=== PATIENT | female | born 1980 | race Caucasian/White ===

== ENCOUNTER → 2016-08-18 | Outpatient (CLI) | payer OTHER ==
[2016-08-18 10:28] LABS: CHLORIDE,CL 108 mmol/L (98-110); SODIUM,NA 140 mmol/L (136-146)
--- NOTE | 2016-08-18 14:48 | CR ---
EXAMINATION: Paranasal sinuses HISTORY: Disturbance of skull and taste COMPARISON: None TECHNIQUE: Stewart' view FINDINGS/IMPRESSION: The frontal and maxillary sinuses appear grossly patent. The nasal septum is mi dline. No bony destruction or air-fluid levels.
== END ==
LOC: MW.CHOBGYN 09:32
PROVIDERS: ATTEND Nurse Practitioner Women's Health
DX: R43.9 Unspecified disturbances of smell and taste (principal)
CPT/HCPCS: 36415; 70210; 70210-26; 80053; 84443; 85025; 85652; 86038

== ENCOUNTER → 2016-08-27 | Outpatient (CLI) | payer OTHER ==
[2016-08-27] MEDS: Gadobutrol 10 mMOL/10 ML SDV IVPUSH STA (15:05)
--- NOTE | 2016-08-29 12:45 | MR ---
EXAMINATION: MRI of the brain with and without contrast. TECHNIQUE: Multiplanar and multisequence imaging of the brain without and following the administrati on of 10 mL of Gadavist. HISTORY: Disturbance of smell and taste. FINDINGS: Cerebral hemispheres and the deep nuclei are without hemorrhage, mass, edema, gliosis, enhancement o r atrophy. No extraaxial collections or hemorrhage. The ventricular system is of normal size and c onfiguration without hydrocephalus. No abnormal diffusion restriction. The brainstem and cerebellum are without hemorrhage, mass, edema, gliosis, enhancement or atrophy. The carotid basilar artery flow voids are intact. The otomastoid airspaces are clear. No internal auditory canal or cerebellopontine angle masses or enhancement. No cranial neuritis. Paranasal sinuses are clear. Globes, optic nerves, orbital apices, optic chiasm, optic tracts, and visual cortices are unremarkable. The pituitary and sella turcica are unremarkable. No meningeal enhancement. Craniocervical junction is unremarkable. No siderosis or evidence of vascular malformation. The josh varium is intact. IMPRESSION: 1. No abnormal intracranial findings.
== END | disposition home or self-care (01) ==
LOC: MW.MRI 14:44
PROVIDERS: ATTEND Nurse Practitioner Women's Health
DX: R43.9 Unspecified disturbances of smell and taste (principal)
CPT/HCPCS: 70553; A9585

== ENCOUNTER 2017-10-26 08:39 | Day surgery (SDC) | payer OTHER ==
[~2017-10-26 08:39] MED LIST: Bupivacaine 0.5% 10 ML SDV ONE; Dexamethasone 4 MG/ML 5 ML MDV ONE; Lactated Ringers 1,000 ML IV SCH; Midazolam 1 MG/ML 2 ML SDV ONE; Ondansetron 4 MG/2 ML SDV ONE; Propofol 200 MG/20 ML SDV ONE; fentaNYL 100 MCG/2 ML SDV ONE
--- NOTE | 2017-10-26 09:19 | PCM.PREANE ---
Preanesthetic Assessment - Anesthesia/Transfusion/Family Hx Anesthesia History: Prior Anesthesia Without Reaction Other Type of Anesthesia Reaction Comment: Denies any known problems in past Family History of Anesthesia Reaction: No Transfusion History: No Prior Transfusion(s) - Review of Systems General: No Symptoms Pulmonary: No Symptoms Cardiovascular: No Symptoms Gastrointestinal: No Symptoms Neurological: No Symptoms Other: Reports: None - Physical Assessment NPO Status Date: 10/25/17 O2 Sat by Pulse Oximetry: 98 Respiratory Rate: 16 Vital Signs: Last Vital Signs Temp 36.7 C 10/26/17 08:52 Pulse 80 10/26/17 08:52 Resp 16 10/26/17 08:52 BP 154/91 H 10/26/17 08:52 Pulse Ox 98 10/26/17 08:52 Height: 1.68 m Weight: 99.337 kg ASA Class: 2 Mental Status: Alert & Oriented x3 Airway Class: Mallampati = 2 Dentition: Reports: Normal Dentition ROM/Head Extension: Full Lungs: Clear to Auscultation, Normal Respiratory Effort Cardiovascular: Regular Rate, Regular Rhythm - Allergies Allergies/Adverse Reactions: Allergies Allergy/AdvReac Type Severity Reaction Status Date / Time doxycycline Allergy Rash Verified 10/21/17 14:34 morphine Allergy Rash Verified 10/21/17 14:34 oxycodone [Oxycodone] Allergy Rash Verified 10/21/17 14:34 - Anesthesia Plan Pre-Op Medication Ordered: None - Acknowledgements Anesthesia Type Planned: General Anesthesia Pt an Appropriate Candidate for the Planned Anesthesia: Yes Alternatives and Risks of Anesthesia Discussed w Pt/Guardian: Yes Pt/Guardian Understands and Agrees with Anesthesia Plan: Yes PreAnesthesia Questionnaire HEENT History: Reports: Other (See Below) Other HEENT History: wears glasses/contacts 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: 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 History: Reports: Fracture Other 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 History: hx of bilateral legs, hand Neurological History: Reports: Concussion, Migraines Psychiatric History: Reports: Anxiety, Depression Endocrine/Metabolic History: Reports: Hypothyroidism, Obesity/BMI 30+ Other Endocrine/Metabolic History: hx of Hashimotos disease Hematologic History: Reports: Anemia, Iron Deficiency - Past Surgical History HEENT Surgical History: Reports: Oral Surgery, Tonsillectomy Other HEENT Surgeries/Procedures: wisdom teeth GI Surgical History: Reports: Bariatric Procedure, Other (See Below) Other GI Surgeries/Procedures: removal of gastric lap band Female Surgical History: Reports: Section, D&C, Other (See Below) Other Female Surgeries/Procedures: Laparoscopy 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 Surgical History: Reports: Other (See Below) Other 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 Surgeries/Procedures:: Closed Reduction Fx Femur - SUBSTANCE USE Smoking Status *Q: Current Every Day Smoker Tobacco Use Within Last Twelve Months: Cigarettes Second Hand Smoke Exposure: No Days Per Week of Alcohol Use: 0 Number of Drinks Per Day: 0 Total Drinks Per Week: 0 Recreational Drug Use History: No - HOME MEDS Home Medications: Home Meds Levothyroxine Sodium [Synthroid] 125 mcg PO ACBREAKFAST 01/04/15 [History] Citalopram [Citalopram HBr] 20 mg PO DAILY 10/21/17 [History] Ferrous Sulfate [Iron] 650 mg PO DAILY 10/21/17 [History] - CURRENT (IN HOUSE) MEDS Current Meds: Current Medications Lactated Ringer's (Ringers, Lactated) 1,000 mls @ 125 mls/hr IV ASDIRECTED [facility] Last Admin: 10/26/17 08:54 Dose: 125 mls/hr Discontinued Medications Bupivacaine HCl (Sensorcaine-Mpf 0.5%) Confirm Administered Dose 10 ml .ROUTE .STK-MED ONE Stop: 10/26/17 07:12 Dexamethasone (Dexamethasone) Confirm Administered Dose 20 mg .ROUTE .STK-MED ONE Stop: 10/26/17 07:18 Fentanyl (Sublimaze) Confirm Administered Dose 100 mcg .ROUTE .STK-MED ONE Stop: 10/26/17 07:16 Midazolam HCl (Versed 1 Mg/Ml) Confirm Administered Dose 2 mg .ROUTE .STK-MED ONE Stop: 10/26/17 07:16 Ondansetron HCl (Zofran) Confirm Administered Dose 4 mg .ROUTE .STK-MED ONE Stop: 10/26/17 07:18 Propofol (Diprivan 20 Ml) Confirm Administered Dose 200 mg .ROUTE .STK-MED ONE Stop: 10/26/17 07:16
[2017-10-26] MEDS ORDERED: fentaNYL 100 MCG/2 ML SDV IVPUSH PRN (09:23)
[2017-10-26] MEDS ORDERED: Lidocaine 1% 20 ML MDV ONE (09:26)
[2017-10-26] MEDS ORDERED: Propofol 200 MG/20 ML SDV ONE (09:46)
[2017-10-26] MEDS ORDERED: Lactated Ringers 1,000 ML IV SCH (10:30)
[2017-10-26] MEDS ORDERED: Acetaminophen 325 MG Tab PO PRN (10:30)
[2017-10-26] MEDS ORDERED: traMADol 50 MG Tab PO PRN (10:31)
--- NOTE | 2017-10-26 10:34 | PCM.OPNOTE ---
- General Post-Op/Procedure Note Date of Surgery/Procedure: 10/26/17 Operative Procedure(s): Excision left breast mass Pre Op Diagnosis: Palpable left breast mass Post-Op Diagnosis: Same Anesthesia Technique: General LMA (ASA II) Primary Surgeon: Kaleb Zimmer Fluid Replacement, Intraop: 600 EBL in mLs: 10 Condition: Good Free Text/Narrative:: Dictation [id number] CPT CODE 20213
--- NOTE | 2017-10-26 11:17 | OR ---
SURGEON: Kaleb Zimmer M.D. DATE OF PROCEDURE: 10/26/2017 OPERATION PERFORMED: Excision of left breast mass. ANESTHESIA: General LMA. ASA CLASSIFICATION: II. PREOPERATIVE DIAGNOSIS: Palpable enlarging left breast mass. POSTOPERATIVE DIAGNOSIS: Palpable enlarging left breast mass. ESTIMATED BLOOD LOSS: 10 mL. INTRAOPERATIVE FLUID REPLACEMENT: 600 mL of crystalloid. DESCRIPTION OF PROCEDURE: The patient was taken to the operating room and placed on the operating table in the supine position. Time-out was called for appropriate identification of the patient and procedure. The surgical site had been marked prior to the patient entering the operating room as well as marking the line of incision. Following satisfactory attainment of general anesthesia with placement of an LMA, the left breast was prepped with Betadine solution. Sterile drapes were applied. The skin at the nipple-areolar complex from 10 o'clock to 2 o'clock was infiltrated with 10 mL of 0.5% Marcaine solution. The skin incision was made and deepened through the subcutaneous tissue obtaining hemostasis with the use of electrocautery. The mass was grasped with an Allis clamp and using electrocautery, dissected free. Small bleeding sites were electrocoagulated. Larger vessels were ligated with 3-0 Vicryl. Once the specimen was completely removed and with a 2-0 silk suture marking the anterior margin, the margins of the tumor were marked with a breast marking system per protocol. The wound was inspected for hemostasis. No other bleeding was noted. The incision was closed in 2 layers approximating the subcutaneous tissue with 3-0 Polysorb, and the skin with subcuticular 4-0 Monocryl. The incision was then Steri-Stripped and dressed with a well-padded pressure dressing. Sponge, needle, and instrument counts were all correct. The patient tolerated the procedure well. Following emergence from anesthesia and extubation, she was taken to the recovery room in a stable condition. It should be noted that the specimen was sent fresh to Pathology for histologic analysis. ТАТЬЯНА SOFIA /[id number]
--- NOTE | 2017-10-26 11:59 | PCM.POSTAN ---
POST ANESTHESIA ASSESSMENT - MENTAL STATUS Mental Status: Alert, Oriented - RESPIRATORY Respiratory Status: Respiratory Rate WNL, Airway Patent, O2 Saturation Stable - CARDIOVASCULAR CV Status: Pulse Rate WNL, Blood Pressure Stable - GASTROINTESTINAL GI Status: No Symptoms - POST OP HYDRATION Hydration Status: Adequate & Stable
--- NOTE | 2017-10-26 11:59 | PCM48HPAN ---
Post Anesthesia Note - EVALUATION WITHIN 48HRS OF ANESTHETIC Vital Signs in Normal Range: Yes Patient Participated in Evaluation: Yes Respiratory Function Stable: Yes Airway Patent: Yes Cardiovascular Function Stable: Yes Hydration Status Stable: Yes Pain Control Satisfactory: Yes Nausea and Vomiting Control Satisfactory: Yes Mental Status Recovered: Yes Resp Rate: 14
[2017-10-26 12:01] VITALS: BP 138/85
== END 2017-10-26 11:59 | disposition home or self-care (01) ==
LOC: MW.SDS 08:39
PROVIDERS: ATTEND Surgery
DX: N60.32 Fibrosclerosis of left breast (principal); G43.909 Migraine, unspecified, not intractable, without status migrainosus; E89.0 Postprocedural hypothyroidism; D50.9 Iron deficiency anemia, unspecified; F41.8 Other specified anxiety disorders; E66.9 Obesity, unspecified; Z68.37 Body mass index [BMI] 37.0-37.9, adult; Z87.891 Personal history of nicotine dependence; Z79.899 Other long term (current) drug therapy; Z88.5 Allergy status to narcotic agent
CPT/HCPCS: 19120; 81025; A9270; J1100; J2250; J2405; J3010; J7120; 88307; J2704

== ENCOUNTER 2017-10-31 01:12 | Emergency (ER) | payer OTHER ==
[2017-10-31] MEDS ORDERED: Morphine 4 MG/ML Syringe IVPUSH ONE (01:58)
[2017-10-31] MEDS ORDERED: HYDROmorphone 2 MG/ML SDV IVPUSH PRN (02:18)
[2017-10-31] MEDS ORDERED: HYDROmorphone 2 MG/ML Syringe IVPUSH ONE (03:10)
[2017-10-31] MEDS ORDERED: HYDROmorphone 2 MG/ML SDV IVPUSH ONE (03:13)
--- NOTE | 2017-10-31 03:29 | EDM.PDOC ---
ED HPI GENERAL MEDICAL PROBLEM - General Chief Complaint: Skin Complaint Stated Complaint: INFECTION IN LEFT BREAST Time Seen by Provider: 10/31/17 03:25 Source of Information: Reports: Patient - History of Present Illness INITIAL COMMENTS - FREE TEXT/NARRATIVE: HISTORY AND PHYSICAL: History of present illness: [ Patient presents postop day [address] Zimmer she's had some redness and warmth of the left breast year she was started on Bactrim and Keflex 24 hours prior to arrival however now she has some purulent drainage wound cultures obtained no fever nausea vomiting chills sweats pain controlled with 1 dose of Dilaudid 0.5 mg IV I did speak with Dr. Zimmer, patient desires to go home at current and return at 7:30 AM which would be in approximately 3 hours to return for surgery/ drainage of the lesion ] Review of systems: As per history of present illness and below otherwise all systems reviewed and negative. Past medical history: As per history of present illness and as reviewed below otherwise noncontributory. Surgical history: As per history of present illness and as reviewed below otherwise noncontributory. Social history: No reported history of drug or alcohol abuse. Family history: As per history of present illness and as reviewed below otherwise noncontributory. Physical exam: HEENT: Atraumatic, normocephalic, pupils reactive, negative for conjunctival pallor or scleral icterus, mucous membranes moist, throat clear, neck supple, nontender, trachea midline. Lungs: Clear to auscultation, breath sounds equal bilaterally, chest nontender. Heart: S1S2, regular, negative for clicks, rubs, or JVD. Abdomen: Soft, nondistended, nontender. Negative for masses or hepatosplenomegaly. Negative for costovertebral tenderness. Pelvis: Stable nontender. Genitourinary: Deferred. Rectal: Deferred. Extremities: Atraumatic, negative for cords or calf pain. Neurovascular unremarkable. Neuro: Awake, alert, oriented. Cranial nerves II through XII unremarkable. Cerebellum unremarkable. Motor and sensory unremarkable throughout. Exam nonfocal. Skin as per history of present illness otherwise unremarkable Diagnostics: [ CBC CMP UA blood cultures ] Therapeutics: [ Dilaudid 0.5 mg IV continue medications as directed Nothing by mouth until surgery at 7:30 AM Present to the admissions desk for the ER ] Impression: [ infection/abscess] Definitive disposition and diagnosis as appropriate pending reevaluation and review of above. L breast Pain Score (Numeric/FACES): 7 - Related Data Allergies Allergy/AdvReac Type Severity Reaction Status Date / Time doxycycline Allergy Rash Verified 10/31/17 01:29 morphine Allergy Rash Verified 10/31/17 01:29 oxycodone [Oxycodone] Allergy Rash Verified 10/31/17 01:29 Home Meds: Home Meds Levothyroxine Sodium [Synthroid] 125 mcg PO ACBREAKFAST 01/04/15 [History] Citalopram [Citalopram HBr] 20 mg PO DAILY 10/21/17 [History] Ferrous Sulfate [Iron] 650 mg PO DAILY 10/21/17 [History] Cephalexin [Keflex] 500 mg PO QID 10/31/17 [History] Sulfamethoxazole/Trimethoprim [Bactrim Ds Tablet] 800 mg PO BID 10/31/17 [ History] Past Medical History HEENT History: Reports: Other (See Below) Other HEENT History: wears glasses/contacts 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: 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 History: Reports: Fracture Other 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 History: hx of bilateral legs, hand Neurological History: Reports: Concussion, Migraines Psychiatric History: Reports: Anxiety, Depression Endocrine/Metabolic History: Reports: Hypothyroidism, Obesity/BMI 30+ Other Endocrine/Metabolic History: hx of Hashimotos disease Hematologic History: Reports: Anemia, Iron Deficiency - Infectious Disease History Infectious Disease History: Reports: Chicken Pox, Scarlet Fever - Past Surgical History HEENT Surgical History: Reports: Oral Surgery, Tonsillectomy Other HEENT Surgeries/Procedures: wisdom teeth GI Surgical History: Reports: Bariatric Procedure, Other (See Below) Other GI Surgeries/Procedures: removal of gastric lap band Female Surgical History: Reports: Breast Biopsy, Section, D&C, Other (See Below) Other Female Surgeries/Procedures: Laparoscopy 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 Surgical History: Reports: Other (See Below) Other 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 Surgeries/Procedures:: Closed Reduction Fx Femur Social & Family History - Tobacco Use Smoking Status *Q: Current Every Day Smoker Years of Tobacco use: 15 Packs/Tins Daily: 0.5 - Caffeine Use Caffeine Use: Reports: Coffee - Recreational Drug Use Recreational Drug Use: No ED ROS GENERAL - Review of Systems Review Of Systems: ROS reveals no pertinent complaints other than HPI. ED EXAM, SKIN/RASH Exam: See Below Course - Vital Signs Last Recorded V/S: Last Vital Signs Temp 98.1 F 10/31/17 01:26 Pulse 95 10/31/17 01:26 Resp 12 10/31/17 01:26 BP 159/95 H 10/31/17 01:26 Pulse Ox 96 10/31/17 01:26 - Orders/Labs/Meds Orders: Active Orders 24 hr Category Date Time Status CULTURE BLOOD [BC] Stat Lab 10/31/17 01:46 Received CULTURE BLOOD [BC] Stat Lab 10/31/17 02:30 Received CULTURE WOUND [RM] Stat Lab 10/31/17 01:34 Received UA W/MICROSCOPIC [URIN] Stat Lab 10/31/17 01:57 Ordered HYDROmorphone [Dilaudid] Med 10/31/17 02:18 Active 0.5 mg IVPUSH ONETIME PRN Blood Culture x2 Reflex Set [OM.PC] Stat Oth 10/31/17 01:57 Ordered Medication Orders Hydromorphone HCl (Dilaudid) 0.5 mg IVPUSH ONETIME PRN PRN Reason: Pain Last Admin: 10/31/17 02:34 Dose: 0.5 mg Labs: Laboratory Tests 10/31/17 10/31/17 10/31/17 Range/Units 01:46 01:46 01:46 WBC 16.15 H (4.0-11.0) K/uL RBC 5.31 (4.30-5.90) M/uL Hgb 14.1 (12.0-16.0) g/dL Hct 42.2 (36.0-46.0) % MCV 79.5 L (80.0-98.0) fL MCH 26.6 L (27.0-32.0) pg MCHC 33.4 (31.0-37.0) g/dL RDW Std Deviation 49.0 (28.0-62.0) fl RDW Coeff of [place] 17 H (11.0-15.0) % Plt Count 280 (150-400) K/uL MPV 9.00 (7.40-12.00) fL Neut % (Auto) 68.9 (48.0-80.0) % Lymph % (Auto) 23.0 (16.0-40.0) % Maverick % (Auto) 5.9 (0.0-15.0) % Eos % (Auto) 1.9 (0.0-7.0) % Baso % (Auto) 0.3 (0.0-1.5) % Neut # (Auto) 11.1 H (1.4-5.7) K/uL Lymph # (Auto) 3.7 H (0.6-2.4) K/uL Maverick # (Auto) 1.0 H (0.0-0.8) K/uL Eos # (Auto) 0.3 (0.0-0.7) K/uL Baso # (Auto) 0.1 (0.0-0.1) K/uL Nucleated RBC % 0.0 /100WBC Nucleated RBCs # 0 K/uL INR 0.98 Sodium 137 (136-145) mmol/L Potassium 3.4 L (3.5-5.1) mmol/L Chloride 102 (98-107) mmol/L Carbon Dioxide 24.2 (21.0-32.0) mmol/L BUN 16 (7.0-18.0) mg/dL Creatinine 1.1 H (0.6-1.0) mg/dL Est Cr Clr Drug Dosing 66.82 mL/min Estimated GFR (MDRD) 56.5 ml/min Glucose 92 (74-106) mg/dL Calcium 8.8 (8.5-10.1) mg/dL Total Bilirubin 0.7 (0.2-1.0) mg/dL AST 14 L (15-37) IU/L ALT 29 (14-63) IU/L Alkaline Phosphatase 98 (46-116) U/L Total Protein 7.0 (6.4-8.2) g/dL Albumin 3.4 (3.4-5.0) g/dL Globulin 3.6 H (2.0-3.5) g/dL Albumin/Globulin Ratio 0.9 L (1.3-2.8) Meds: Medications Generic Name Dose Route Start Last Admin Trade Name Freq PRN Reason Stop Dose Admin Hydromorphone HCl 0.5 mg 10/31/17 02:18 10/31/17 02:34 Dilaudid IVPUSH 0.5 mg ONETIME PRN Administration Pain Discontinued Medications Generic Name Dose Route Start Last Admin Trade Name Freq PRN Reason Stop Dose Admin Hydromorphone HCl 0.5 mg 10/31/17 03:10 10/31/17 03:21 Dilaudid IVPUSH 10/31/17 03:11 Not Given ONETIME ONE Hydromorphone HCl 0.5 mg 10/31/17 03:13 10/31/17 03:21 Dilaudid IVPUSH 10/31/17 03:14 0.5 mg ONETIME ONE Administration Morphine Sulfate 2 mg 10/31/17 01:58 10/31/17 02:18 Morphine IVPUSH 10/31/17 01:59 Not Given ONETIME ONE Departure - Departure Time of Disposition: 03:28 Disposition: Home, Self-Care 01 Condition: Good Clinical Impression: Abscess, Cellulitis - Discharge Information Referrals: PCP,None [Primary Care Provider] - Additional Instructions: Nothing by mouth prior to surgery at 7:30 AM You're being discharged as per request from the ER Return if symptoms persist or worsen Present to the ER admissions desk at 7:30 AM as discussed as Dr. Zimmer will be expecting at that time for surgery - My Orders Last 24 Hours: My Active Orders 10/31/17 01:34 CULTURE WOUND [RM] Stat 10/31/17 01:46 CULTURE BLOOD [BC] Stat 10/31/17 01:57 UA W/MICROSCOPIC [URIN] Stat Blood Culture x2 Reflex Set [OM.PC] Stat 10/31/17 02:18 HYDROmorphone [Dilaudid] 0.5 mg IVPUSH ONETIME PRN 10/31/17 02:30 CULTURE BLOOD [BC] Stat - Assessment/Plan Last 24 Hours: My Active Orders 10/31/17 01:34 CULTURE WOUND [RM] Stat 10/31/17 01:46 CULTURE BLOOD [BC] Stat 10/31/17 01:57 UA W/MICROSCOPIC [URIN] Stat Blood Culture x2 Reflex Set [OM.PC] Stat 10/31/17 02:18 HYDROmorphone [Dilaudid] 0.5 mg IVPUSH ONETIME PRN 10/31/17 02:30 CULTURE BLOOD [BC] Stat
[2017-10-31 03:44] VITALS: BP 129/90
== END 2017-10-31 03:42 | disposition home or self-care (01) ==
LOC: MW.ED 01:12
DX: N61.1 Abscess of the breast and nipple (principal); F41.9 Anxiety disorder, unspecified; F32.9 Major depressive disorder, single episode, unspecified; D50.9 Iron deficiency anemia, unspecified; F17.210 Nicotine dependence, cigarettes, uncomplicated; Z88.5 Allergy status to narcotic agent; Z79.899 Other long term (current) drug therapy; E03.9 Hypothyroidism, unspecified; E66.9 Obesity, unspecified; Z68.38 Body mass index [BMI] 38.0-38.9, adult; Z98.890 Other specified postprocedural states
CPT/HCPCS: 36415; 80053; 85025; 85610; 87040; 87070; 96374; 96376; 99283; J1170

== ENCOUNTER 2017-10-31 07:12 | Day surgery (SDC) | payer OTHER ==
--- NOTE | 2017-10-31 08:06 | PCM.HP ---
H&P History of Present Illness - General Date of Service: 10/31/17 Admit Problem/Dx: Left breast abscess, postop Source of Information: Patient History Limitations: Reports: No Limitations - History of Present Illness Symptom Onset Date: 10/30/17 Location: Reports: Other (Left breast) Quality: Reports: Ache, Burning, Pressure Severity: Moderate Improves with: Reports: Rest Worsens with: Reports: Movement Associated Symptoms: Reports: Other (Fever, no chills.). Denies: Confusion, Chest Pain, Cough - Related Data Allergies/Adverse Reactions: Allergies Allergy/AdvReac Type Severity Reaction Status Date / Time doxycycline Allergy Rash Verified 10/31/17 07:38 morphine Allergy Rash Verified 10/31/17 07:38 oxycodone [Oxycodone] Allergy Rash Verified 10/31/17 07:38 Home Medications: Home Meds Levothyroxine Sodium [Synthroid] 125 mcg PO ACBREAKFAST 01/04/15 [History] Citalopram [Citalopram HBr] 20 mg PO DAILY 10/21/17 [History] Ferrous Sulfate [Iron] 650 mg PO DAILY 10/21/17 [History] Cephalexin [Keflex] 500 mg PO QID 10/31/17 [History] Sulfamethoxazole/Trimethoprim [Bactrim Ds Tablet] 800 mg PO BID 10/31/17 [ History] Past Medical History HEENT History: Reports: Other (See Below) Other HEENT History: wears glasses/contacts Hx of 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: 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 History: Reports: Fracture Other 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 History: hx of bilateral legs, hand Neurological History: Reports: Concussion, Migraines Psychiatric History: Reports: Anxiety, Depression Endocrine/Metabolic History: Reports: Hypothyroidism, Obesity/BMI 30+ Other Endocrine/Metabolic History: hx of Hashimotos disease Hematologic History: Reports: Anemia, Iron Deficiency - Infectious Disease History Infectious Disease History: Reports: Chicken Pox, Scarlet Fever - Past Surgical History HEENT Surgical History: Reports: Oral Surgery, Tonsillectomy Other HEENT Surgeries/Procedures: wisdom teeth GI Surgical History: Reports: Bariatric Procedure, Other (See Below) Other GI Surgeries/Procedures: removal of gastric lap band Female Surgical History: Reports: Breast Biopsy, Section, D&C, Other (See Below) Other Female Surgeries/Procedures: Laparoscopy 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 Surgical History: Reports: Other (See Below) Other 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 Surgeries/Procedures:: Closed Reduction Fx Femur Social & Family History - Caffeine Use Caffeine Use: Reports: Coffee H&P Review of Systems - Review of Systems: Review Of Systems: See Below General: Reports: Fever. Denies: Chills, Malaise, Weakness, Fatigue HEENT: Reports: No Symptoms Pulmonary: Denies: Shortness of Breath, Wheezing Cardiovascular: Denies: Chest Pain, Palpitations Gastrointestinal: Reports: No Symptoms Genitourinary: Reports: No Symptoms 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: Reports: No Symptoms Skin: Reports: Other (Left breast abscess) Psychiatric: Reports: No Symptoms Neurological: Reports: No Symptoms Hematologic/Lymphatic: Reports: No Symptoms Immunologic: Reports: No Symptoms Exam - Exam Exam: See Below - Exam General: Alert, Oriented, Cooperative, Mild Distress HEENT: Conjunctiva Clear. No: Scleral Icterus Neck: Supple, Trachea Midline Lungs: Clear to Auscultation, Normal Respiratory Effort Cardiovascular: Regular Rate, Regular Rhythm GI/Abdominal Exam: Normal Bowel Sounds, Soft, Non-Tender (Female) Exam: Deferred Rectal (Female) Exam: Deferred Back Exam: Normal Inspection Extremities: Normal Inspection, No Pedal Edema Skin: Warm, Dry, Intact, Incision (Incision in the left breast is markedly erythematous with purulent-appearing drainage) Neurological: Cranial Nerves Intact Neuro Extensive - Mental Status: Alert, Oriented x3 Psychiatric: Alert, Normal Affect, Normal Mood - Problem List (1) Left breast abscess SNOMED Code(s): 93934561 ICD Code: N61.1 - ABSCESS OF THE BREAST AND NIPPLE Status: Acute Priority : High Current Visit: Yes Problem List Initiated/Reviewed/Updated: Yes Orders Last 24hrs: Active Orders 24 hr Category Date Time Status Antiembolic Devices [RC] PER UNIT ROUTINE Care 10/31/17 08:01 Ordered Oxygen Therapy [RC] PRN Care 10/31/17 08:01 Ordered Pulse Oximetry [RC] INTERMITTENT Care 10/31/17 08:01 Ordered Skin Preparation [RC] .PREOP Care 10/31/17 08:01 Ordered Vital Signs [RC] PER UNIT ROUTINE Care 10/31/17 08:01 Ordered Nothing Per Oral Diet [DIET] Diet 10/31/17 Breakfast Ordered Resuscitation Status Routine Resus Stat 10/31/17 08:01 Ordered Assessment/Plan Comment:: Incision and drainage of left breast abscess. The operative procedure, along with the risks including but not limited to, bleeding, infection, recurrence of the abscess, reaction to anesthesia have been reviewed with the patient. Questions have been answered. Patient wishes to proceed.
[2017-10-31] MEDS ORDERED: ceFAZolin 1 GM Vial ONE (08:24)
[2017-10-31] MEDS ORDERED: Bupivacaine 0.5% 10 ML SDV ONE (08:24)
[2017-10-31] MEDS ORDERED: Ketorolac 30 MG/ML SDV ONE (09:58)
[2017-10-31] MEDS ORDERED: Morphine 10 MG/ML Syringe IVPUSH PRN (09:59)
[2017-10-31] MEDS ORDERED: Ketorolac 30 MG/ML SDV IVPUSH ONE (09:59)
[2017-10-31] MEDS ORDERED: Acetaminophen/Codeine 300-30 MG Tab PO PRN (10:00)
[2017-10-31] MEDS ORDERED: Lactated Ringers 1,000 ML IV SCH (10:00)
--- NOTE | 2017-10-31 10:07 | PCM.OPNOTE ---
- General Post-Op/Procedure Note Date of Surgery/Procedure: 10/31/17 Operative Procedure(s): Incision and drainage of postoperative left breast abscess Pre Op Diagnosis: Left breast abscess Post-Op Diagnosis: Same Anesthesia Technique: General Mask Primary Surgeon: Kaleb Zimmer Fluid Replacement, Intraop: 200 EBL in mLs: 10 Condition: Good Free Text/Narrative:: Dictation [id number] CPT CODE 81625
--- NOTE | 2017-10-31 10:57 | PCM48HPAN ---
Post Anesthesia Note - EVALUATION WITHIN 48HRS OF ANESTHETIC Vital Signs in Normal Range: Yes Patient Participated in Evaluation: Yes Respiratory Function Stable: Yes Airway Patent: Yes Cardiovascular Function Stable: Yes Hydration Status Stable: Yes Pain Control Satisfactory: Yes Nausea and Vomiting Control Satisfactory: Yes Mental Status Recovered: Yes Resp Rate: 18 - COMMENTS/OBSERVATIONS Free Text/Narrative:: to home soon
[2017-10-31 15:53] VITALS: BP 110/74
--- NOTE | 2017-11-02 11:01 | OR ---
SURGEON: Kaleb Zimmer M.D. DATE OF PROCEDURE: 10/31/2017 OPERATION PERFORMED: Incision and drainage left breast abscess. ANESTHESIA: General/mask. ASA CLASSIFICATION: 2E. PREOPERATIVE DIAGNOSIS: Postoperative left breast abscess. POSTOPERATIVE DIAGNOSIS: Postoperative left breast abscess. ESTIMATED BLOOD LOSS: 10 mL. INTRAOPERATIVE FLUID REPLACEMENT: 200 mL of crystalloid. DESCRIPTION OF PROCEDURE: The patient was taken to the operating room and placed on the operating table in the supine position. Time-out was called for appropriate identification of the patient and procedure. Surgical site had been identified preoperatively. The left chest was then prepped with Betadine solution. Sterile drapes were applied. The previous breast incision was opened up and there was approximately 10 mL of purulent material. Aerobic and anaerobic cultures were obtained and sent for culture, sensitivity, and Gram stain. Necrotic tissue was debrided away. All suture material was visualized and was removed. There was a second abscess cavity deep and this was also opened up. The wound was then irrigated with several 100 mL of sterile saline solution. All fluid was aspirated. The wound inspected for hemostasis. Bleeding sites were electrocoagulated. A 1.25 inch [place] drain was brought to the operating table. The [place] drain was cut to appropriate length and 2 [place] drains were placed, one into the deep abscess cavity and secured with a 2-0 nylon suture. The second [place] drain was placed medially and superficially and also secured with a 2-0 nylon suture. The wound was then dressed with fluffs and an ABD, secured with Mefix tape. Sponge, needle, and instrument counts were all correct. The patient tolerated the procedure well. Following emergence from anesthesia, she was taken to recovery room in stable condition. ТАТЬЯНА / BISMARK /[id number]
== END 2017-10-31 12:12 | disposition home or self-care (01) ==
LOC: MW.SDS 07:12 → MW.MS 11:30 → MW.SDS 12:12
PROVIDERS: ATTEND Surgery
DX: T81.4XXA Infection following a procedure, initial encounter (principal); N61.1 Abscess of the breast and nipple; G43.909 Migraine, unspecified, not intractable, without status migrainosus; F41.9 Anxiety disorder, unspecified; F32.9 Major depressive disorder, single episode, unspecified; E03.9 Hypothyroidism, unspecified; E66.9 Obesity, unspecified; Z68.30 Body mass index [BMI] 30.0-30.9, adult; Z79.899 Other long term (current) drug therapy; Z88.8 Allergy status to other drugs, medicaments and biological substances; Z88.5 Allergy status to narcotic agent
CPT/HCPCS: 19020; A9270; J0690

== ENCOUNTER 2017-10-31 07:32 | Emergency (ER) | payer OTHER ==
[2017-10-31] MEDS ORDERED: Lactated Ringers 1,000 ML IV SCH ×2 (08:00→10:30)
[2017-10-31] MEDS ORDERED: fentaNYL 250 MCG/5 ML SDV ONE (08:54)
[2017-10-31] MEDS ORDERED: Propofol 200 MG/20 ML SDV ONE (08:55)
[2017-10-31] MEDS ORDERED: Midazolam 1 MG/ML 2 ML SDV ONE (08:56)
--- NOTE | 2017-10-31 09:47 | PCM.PREANE ---
Preanesthetic Assessment - Procedure Proposed Procedure: Drainage breast abscess (Left) - Anesthesia/Transfusion/Family Hx Anesthesia History: Prior Anesthesia Without Reaction Other Type of Anesthesia Reaction Comment: Denies any known problems in past Family History of Anesthesia Reaction: No Transfusion History: No Prior Transfusion(s) - Review of Systems General: Other (pain left breast; obesity) Pulmonary: No Symptoms Cardiovascular: No Symptoms Gastrointestinal: No Symptoms Neurological: No Symptoms Other: Reports: None - Physical Assessment NPO Status Date: 10/30/17 NPO Status Time: 22:00 O2 Sat by Pulse Oximetry: 96 Respiratory Rate: 16 Vital Signs: Last Vital Signs Temp 97.0 F 10/31/17 07:35 Pulse 65 10/31/17 08:24 Resp 16 10/31/17 08:24 BP 116/75 10/31/17 08:24 Pulse Ox 96 10/31/17 08:24 Weight: 232 lb 5.875 oz ASA Class: 2E Mental Status: Alert & Oriented x3 Airway Class: Mallampati = 1 Dentition: Reports: Normal Dentition Thyro-Mental Finger Breadths: 3 Mouth Opening Finger Breadths: 3 ROM/Head Extension: Full Lungs: Clear to Auscultation, Normal Respiratory Effort Cardiovascular: Regular Rate, Regular Rhythm, No Murmurs - Allergies Allergies/Adverse Reactions: Allergies Allergy/AdvReac Type Severity Reaction Status Date / Time doxycycline Allergy Rash Verified 10/31/17 07:38 morphine Allergy Rash Verified 10/31/17 07:38 oxycodone [Oxycodone] Allergy Rash Verified 10/31/17 07:38 - Blood Blood Available: No Product(s) Available: None - Anesthesia Plan Pre-Op Medication Ordered: None - Acknowledgements Anesthesia Type Planned: General Anesthesia (mask) Pt an Appropriate Candidate for the Planned Anesthesia: Yes Alternatives and Risks of Anesthesia Discussed w Pt/Guardian: Yes Pt/Guardian Understands and Agrees with Anesthesia Plan: Yes PreAnesthesia Questionnaire HEENT History: Reports: Other (See Below) Other HEENT History: wears glasses/contacts Hx of fx nose Genitourinary History: Reports: None 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: 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 History: Reports: Fracture Other 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 History: hx of bilateral legs, hand Neurological History: Reports: Concussion, Migraines Psychiatric History: Reports: Anxiety, Depression Endocrine/Metabolic History: Reports: Hypothyroidism, Obesity/BMI 30+ Other Endocrine/Metabolic History: hx of Hashimotos disease Hematologic History: Reports: Anemia, Iron Deficiency - Infectious Disease History Infectious Disease History: Reports: Chicken Pox, Scarlet Fever - Past Surgical History HEENT Surgical History: Reports: Oral Surgery, Tonsillectomy Other HEENT Surgeries/Procedures: wisdom teeth GI Surgical History: Reports: Bariatric Procedure, Other (See Below) Other GI Surgeries/Procedures: removal of gastric lap band Female Surgical History: Reports: Breast Biopsy, Section, D&C, Other (See Below) Other Female Surgeries/Procedures: Laparoscopy 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 Surgical History: Reports: Other (See Below) Other 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 Surgeries/Procedures:: Closed Reduction Fx Femur - SUBSTANCE USE Smoking Status *Q: Current Every Day Smoker Tobacco Use Within Last Twelve Months: Cigarettes Recreational Drug Use History: No - HOME MEDS Home Medications: Home Meds Levothyroxine Sodium [Synthroid] 125 mcg PO ACBREAKFAST 01/04/15 [History] Citalopram [Citalopram HBr] 20 mg PO DAILY 10/21/17 [History] Ferrous Sulfate [Iron] 650 mg PO DAILY 10/21/17 [History] Cephalexin [Keflex] 500 mg PO QID 10/31/17 [History] Sulfamethoxazole/Trimethoprim [Bactrim Ds Tablet] 800 mg PO BID 10/31/17 [ History] - CURRENT (IN HOUSE) MEDS Current Meds: Current Medications Discontinued Medications Fentanyl (Sublimaze) Confirm Administered Dose 250 mcg .ROUTE .STK-MED ONE Stop: 10/31/17 08:55 Lactated Ringer's (Ringers, Lactated) 1,000 mls @ 125 mls/hr IV ASDIRECTED [facility] Last Admin: 10/31/17 08:19 Dose: 125 mls/hr Midazolam HCl (Versed 1 Mg/Ml) Confirm Administered Dose 2 mg .ROUTE .STK-MED ONE Stop: 10/31/17 08:57 Propofol (Diprivan 20 Ml) Confirm Administered Dose 200 mg .ROUTE .STK-MED ONE Stop: 10/31/17 08:56
--- NOTE | 2017-10-31 09:50 | PCM.POSTAN ---
POST ANESTHESIA ASSESSMENT - MENTAL STATUS Mental Status: Alert, Oriented - VITAL SIGNS Pulse Rate: 62 SaO2: 94 (RA) Resp Rate: 12 Blood Pressure: 120/69 Temperature: 99 F - RESPIRATORY Respiratory Status: Respiratory Rate WNL, Airway Patent, O2 Saturation Stable - CARDIOVASCULAR CV Status: Pulse Rate WNL, Blood Pressure Stable - GASTROINTESTINAL GI Status: No Symptoms - POST OP HYDRATION Hydration Status: Adequate & Stable - OBSERVATIONS Free Text/Narrative:: to observation bed for discharge to home
[2017-10-31] MEDS ORDERED: Acetaminophen/Codeine 300-30 MG Tab PO PRN (10:16)
[2017-10-31] MEDS ORDERED: Ketorolac 30 MG/ML SDV IVPUSH ONE (10:16)
[2017-10-31 10:23] VITALS: BP 99/69
== END 2017-10-31 09:02 | disposition still patient (30) ==
LOC: MW.ED 07:32
DX: Z53.21 Procedure and treatment not carried out due to patient leaving prior to being seen by health care provider (principal)
CPT/HCPCS: 87070; 87075; 87077; 87186; 87205; 96360; 99282; J1885; J2250; J3010; J7120; 00400; J2704

== ENCOUNTER 2019-04-25 14:25 | Emergency (ER) | payer BC ==
[2019-04-25] MEDS ORDERED: Albuterol/Ipratropium 3.0-0.5 MG/3 ML Neb Soln NEB ONE (15:25)
[2019-04-25] MEDS ORDERED: predniSONE 20 MG Tab PO ONE (15:25)
--- NOTE | 2019-04-25 16:01 | EDM.PDOC ---
ED HPI GENERAL MEDICAL PROBLEM - General Chief Complaint: Respiratory Problem Stated Complaint: BRONCHITIS Time Seen by Provider: 04/25/19 15:11 Source of Information: Reports: Patient History Limitations: Reports: No Limitations - History of Present Illness INITIAL COMMENTS - FREE TEXT/NARRATIVE: History of present illness: [] Review of systems: As per history of present illness and below otherwise all systems reviewed and negative. Past medical history: As per history of present illness and as reviewed below otherwise noncontributory. Surgical history: As per history of present illness and as reviewed below otherwise noncontributory. Social history: No reported history of drug or alcohol abuse. Family history: As per history of present illness and as reviewed below otherwise noncontributory. Physical exam: General: Well developed, well nourished in NAD HEENT: Atraumatic, normocephalic, pupils reactive, negative for conjunctival pallor or scleral icterus, mucous membranes moist, throat clear, neck supple, nontender, trachea midline. Lungs: Clear to auscultation, breath sounds equal bilaterally, chest nontender. Heart: S1S2, regular, negative for clicks, rubs, or JVD. Abdomen: NABS, Soft, nondistended, nontender. Negative for masses or hepatosplenomegaly. Negative for costovertebral tenderness. Pelvis: Stable nontender. Genitourinary: Deferred. Rectal: Deferred. Extremities: Atraumatic, negative for cords or calf pain. Neurovascular unremarkable. Neuro: Awake, alert, oriented. Cranial nerves II through XII unremarkable. Cerebellum unremarkable. Motor and sensory unremarkable throughout. Exam nonfocal. Skin:warm and dry Diagnostics: Therapeutics: ED Course: Impression: Prescriptions: Plan: Definitive disposition and diagnosis as appropriate pending reevaluation and review of above. - Related Data Allergies Allergy/AdvReac Type Severity Reaction Status Date / Time adhesive tape Allergy Hives Verified 04/25/19 14:52 doxycycline Allergy Rash Verified 04/25/19 14:52 morphine Allergy Rash Verified 04/25/19 14:52 oxycodone [Oxycodone] Allergy Rash Verified 04/25/19 14:52 Home Meds: Home Meds Citalopram [Citalopram HBr] 20 mg PO DAILY 10/21/17 [History] Ferrous Sulfate [Iron] 650 mg PO DAILY 10/21/17 [History] Albuterol [Ventolin HFA] 2 puff INH Q4HR PRN #1 inhaler 04/25/19 [Rx] Azithromycin [Zithromax] 250 mg PO DAILY #6 tab 04/25/19 [Rx] Levothyroxine 150 mcg PO DAILY 04/25/19 [History] Phentermine HCl 37.5 mg PO DAILY 04/25/19 [History] predniSONE [Prednisone] 20 mg PO DAILY #5 tablet 04/25/19 [Rx] Past Medical History HEENT History: Reports: Other (See Below) Other HEENT History: wears glasses/contacts Hx of fx nose Genitourinary History: Reports: None 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 History: Reports: Fracture Other 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 History: hx of bilateral legs, hand Neurological History: Reports: Concussion, Migraines Psychiatric History: Reports: Anxiety, Depression Endocrine/Metabolic History: Reports: Hypothyroidism, Obesity/BMI 30+ Other Endocrine/Metabolic History: hx of Hashimotos disease Hematologic History: Reports: Anemia, Iron Deficiency - Infectious Disease History Infectious Disease History: Reports: Chicken Pox, Scarlet Fever - Past Surgical History HEENT Surgical History: Reports: Oral Surgery, Tonsillectomy Other HEENT Surgeries/Procedures: wisdom teeth GI Surgical History: Reports: Bariatric Procedure, Other (See Below) Other GI Surgeries/Procedures: removal of gastric lap band Female Surgical History: Reports: Breast Biopsy, Section, D&C, Other (See Below) Other Female Surgeries/Procedures: Laparoscopy 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 Surgical History: Reports: Other (See Below) Other 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 Surgeries/Procedures:: Closed Reduction Fx Femur Social & Family History - Family History Family Medical History: Noncontributory - Tobacco Use Smoking Status *Q: Current Every Day Smoker Years of Tobacco use: 15 Packs/Tins Daily: 0.5 - Caffeine Use Caffeine Use: Reports: None - Recreational Drug Use Recreational Drug Use: No ED ROS GENERAL - Review of Systems Review Of Systems: See Below ED EXAM, GENERAL - Physical Exam Exam: See Below Course - Vital Signs Last Recorded V/S: Last Vital Signs Temp 96.7 F 04/25/19 14:50 Pulse 100 04/25/19 14:50 Resp 20 04/25/19 14:50 BP 127/70 04/25/19 14:59 Pulse Ox 98 04/25/19 14:50 - Orders/Labs/Meds Orders: Active Orders 24 hr Category Date Time Status RT Aerosol Therapy [RC] ASDIRECTED Care 04/25/19 15:25 Active Chest 2V [CR] Stat Exams 04/25/19 15:25 Taken Meds: Medications Discontinued Medications Generic Name Dose Route Start Last Admin Trade Name Freq PRN Reason Stop Dose Admin Albuterol/Ipratropium 3 ml 04/25/19 15:25 04/25/19 15:32 Duoneb 3.0-0.5 Mg/3 Ml NEB 04/25/19 15:26 3 ml ONETIME ONE Administration Prednisone 60 mg 04/25/19 15:25 Prednisone PO 04/25/19 15:26 ONETIME ONE Departure - Departure Time of Disposition: 16:01 Disposition: Home, Self-Care 01 Condition: Good Clinical Impression: Acute bronchitis Qualifiers: Bronchitis organism: unspecified organism Qualified Code(s): J20.9 - Acute bronchitis, unspecified - Discharge Information *PRESCRIPTION DRUG MONITORING PROGRAM REVIEWED*: Not Applicable *COPY OF PRESCRIPTION DRUG MONITORING REPORT IN PATIENT MARYCHUY: Not Applicable Prescriptions: Albuterol [Ventolin HFA] 2 puff INH Q4HR PRN #1 inhaler PRN Reason: Shortness Of Breath Azithromycin [Zithromax] 250 mg PO DAILY #6 tab predniSONE [Prednisone] 20 mg PO DAILY #5 tablet Referrals: Tao Godinez MD [Primary Care Provider] - Additional Instructions: The following information is given to patients seen in the emergency department who are being discharged to home. This information is to outline your options for follow-up care. We provide all patients seen in our emergency department with a follow-up referral. The need for follow-up, as well as the timing and circumstances, are variable depending upon the specifics of your emergency department visit. If you don't have a primary care physician on staff, we will provide you with a referral. We always advise you to contact your personal physician following an emergency department visit to inform them of the circumstance of the visit and for follow-up with them and/or the need for any referrals to a consulting specialist. The emergency department will also refer you to a specialist when appropriate. This referral assures that you have the opportunity for follow-up care with a specialist. All of these measure are taken in an effort to provide you with optimal care, which includes your follow-up. Under all circumstances we always encourage you to contact your private physician who remains a resource for coordinating your care. When calling for follow-up care, please make the office aware that this follow-up is from your recent emergency room visit. If for any reason you are refused follow-up, please contact the [facility] Emergency Department at and asked to speak to the emergency department charge nurse. Take meds as directed, follow up with your primary care physician, return to ER if symptoms worsen or change. [facility] [address] [place] [id number] - My Orders Last 24 Hours: My Active Orders 04/25/19 15:25 RT Aerosol Therapy [RC] ASDIRECTED Chest 2V [CR] Stat - Assessment/Plan Last 24 Hours: My Active Orders 04/25/19 15:25 RT Aerosol Therapy [RC] ASDIRECTED Chest 2V [CR] Stat
--- NOTE | 2019-04-25 16:09 | CR ---
EXAM DATE: 04/25/19 PATIENT'S AGE: 38 Chest: Two views of the chest were obtained. Comparison: Prior chest x-ray of 02/16/18. Heart size and mediastinum are normal. Lungs are clear. Bony structures appear within normal limits for the patient's age. Impression: 1. Nothing acute is seen on two view chest x-ray. Diagnostic code #1 Report Signed by Proxy. LAURITA
[2019-04-25 16:14] VITALS: BP 131/84; PULSE 88
== END 2019-04-25 16:14 | disposition home or self-care (01) ==
LOC: MW.ED 14:25
DX: J20.9 Acute bronchitis, unspecified (principal); F41.9 Anxiety disorder, unspecified; F32.9 Major depressive disorder, single episode, unspecified; E03.9 Hypothyroidism, unspecified; F17.210 Nicotine dependence, cigarettes, uncomplicated; Z91.048 Other nonmedicinal substance allergy status; Z88.1 Allergy status to other antibiotic agents; Z88.6 Allergy status to analgesic agent; Z88.5 Allergy status to narcotic agent; Z79.899 Other long term (current) drug therapy
CPT/HCPCS: 71046; 87804; 94640; 99283; A9270; J7620-GY

== ENCOUNTER 2019-07-22 15:34 | Emergency (ER) | payer BC ==
[2019-07-22] MEDS ORDERED: Ketorolac 60 MG/2 ML SDV IM ONE (16:15)
--- NOTE | 2019-07-22 16:25 | EDM.PDOC ---
ED HPI GENERAL MEDICAL PROBLEM - General Chief Complaint: Back Pain or Injury Stated Complaint: BACK PAIN Time Seen by Provider: 07/22/19 15:48 Source of Information: Reports: Patient History Limitations: Reports: No Limitations - History of Present Illness INITIAL COMMENTS - FREE TEXT/NARRATIVE: HISTORY AND PHYSICAL: History of present illness: Patient is a 39 year old female who presents to the ED with c/o lumbar back pain. Patient reports pain started yesterday morning. She doesn't recall any one activity that caused the discomfort. States she felt a "popping sensation". Pain worsened this morning, stating anytime she moved or had to engage her core/ back muscles it was painful. She denies any injury, trauma or falls. Denies any numbness, tingling, or saddle paraesthesias. Patient denies any fever, chills, headache, change in vision, syncope or near syncope. Denies any chest pain, back pain, shortness of breath or cough. Denies any GI or symptoms. Patient has been eating and drinking appropriately. Review of systems: As per history of present illness and below otherwise all systems reviewed and negative. Past medical history: As per history of present illness and as reviewed below otherwise noncontributory. Surgical history: As per history of present illness and as reviewed below otherwise noncontributory. Social history: See social history for further information Family history: As per history of present illness and as reviewed below otherwise noncontributory. Physical exam: General: well-developed and well-nourished 39-year female. Alert and oriented. Nontoxic appearing and in no acute distress. HEENT: Atraumatic, normocephalic, pupils equal and reactive bilaterally, negative for conjunctival pallor or scleral icterus, mucous membranes moist, TMs normal bilaterally, throat clear, neck supple, nontender, trachea midline. No drooling or trismus noted. No meningeal signs. No hot potato voice noted. Lungs: Clear to auscultation, breath sounds equal bilaterally, chest nontender. Heart: S1S2, regular rate and rhythm without overt murmur Abdomen: Soft, nondistended, obese, nontender. Negative for masses or costovertebral tenderness. Pelvis: Stable nontender. C-spine/Back: No pinpoint vertebral tenderness upon palpation. No crepitus, step -offs or obvious deformities. Bilateral paraspinous/lumbar muscular back pain. Patient is ambulatory into the emergency room without difficulty or deficit. Able to rock back on heels and walk on toes. Denies any urinary or fecal incontinence. Denies any numbness, tingling or saddle paresthesia. Skin: Intact, warm, dry. No lesions or rashes noted. Extremities: Atraumatic, moves all extremities per self without difficulty or deficits. Equal strength bilaterally to upper and lower ext. Neurovascular unremarkable. Neuro: Awake, alert, oriented. Cranial nerves II through XII unremarkable. Cerebellum unremarkable. Motor and sensory unremarkable throughout. Exam nonfocal. Notes: Diagnostics are unremarkable, incidental findings of a nonobstructing kidney stone. Patient states she is aware of this, "that's not whats going on". She states she hasn't had any pain relief with the IM medication. Will do one tab of Tramadol, she has multiple allergies. While reassessing the patient, she is sitting cross legged (Filipino style) on the chair and is moving freely/turning her trunk to face me. Medication and supportive care measures were reviewed and discussed. Voices understanding and is agreeable to plan of care. Denies any further questions or concerns at this time. Diagnostics: UA, HCGU, Lumbar Spine Therapeutics: Norflex, Toradol IM, Tramadol Prescription: Flexeril, Diclofenac Impression: Lumbar Back Strain Plan: 1. The medication you received today does cause drowsiness, so do not drive for the remaining day 2. When resting please lay on a flat firm surface. Limit your immobility to prevent muscle stiffness. Get up to ambulate/move around/gentle stretching multiple times throughout the day. May alternate heat and ice to the painful areas 3. Tylenol as needed for back pain. Otherwise take the prescribed Flexeril and diclofenac as directed. Diclofenac is an anti-inflammatory so do not take any additional NSAIDs with this medication, such as ibuprofen or Aleve. Flexeril as a muscle relaxant, this medication may cause drowsiness a do not take it will driving her needing to be functioning outside of the house. 4. Please follow-up with your primary care provider as we discussed. Return to the ED as needed and as discussed. Definitive disposition and diagnosis as appropriate pending reevaluation and review of above. lower back Pain Score (Numeric/FACES): 4 - Related Data Allergies Allergy/AdvReac Type Severity Reaction Status Date / Time adhesive tape Allergy Hives Verified 07/22/19 16:08 doxycycline Allergy Rash Verified 07/22/19 16:08 morphine Allergy Rash Verified 07/22/19 16:08 oxycodone [Oxycodone] Allergy Rash Verified 07/22/19 16:08 Home Meds: Home Meds Ferrous Sulfate [Iron] 650 mg PO DAILY 10/21/17 [History] Phentermine HCl 37.5 mg PO DAILY 04/25/19 [History] Cyclobenzaprine [Flexeril] 10 mg PO TID PRN #21 tab 07/22/19 [Rx] Diclofenac Sodium [Voltaren] 75 mg PO BIDMEALS PRN #30 tab.cr 07/22/19 [Rx] Sertraline [Zoloft] 100 mg PO DAILY 07/22/19 [History] Thyroid [Elton Thyroid] 120 mg PO DAILY 07/22/19 [History] Past Medical History HEENT History: Reports: Impaired Vision, Other (See Below) Other HEENT History: wears glasses/contacts Hx of fx nose Cardiovascular History: Reports: None Respiratory History: Reports: None Gastrointestinal History: Reports: None Genitourinary History: Reports: None [employer] History: Reports: 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 History: Reports: Fracture Other 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 History: hx of bilateral legs, hand Neurological History: Reports: Concussion, Migraines Psychiatric History: Reports: Anxiety, Depression Endocrine/Metabolic History: Reports: Hypothyroidism, Obesity/BMI 30+ Other Endocrine/Metabolic History: hx of Hashimotos disease Hematologic History: Reports: Anemia, Iron Deficiency Immunologic History: Reports: None Oncologic (Cancer) History: Reports: None Dermatologic History: Reports: None - Infectious Disease History Infectious Disease History: Reports: Chicken Pox - Past Surgical History Head Surgeries/Procedures: Reports: None HEENT Surgical History: Reports: Oral Surgery, Tonsillectomy Other HEENT Surgeries/Procedures: wisdom teeth Cardiovascular Surgical History: Reports: None Respiratory Surgical History: Reports: None GI Surgical History: Reports: Bariatric Procedure, Other (See Below) Other GI Surgeries/Procedures: removal of gastric lap band Female Surgical History: Reports: Breast Biopsy, Section, D&C, Other (See Below) Other Female Surgeries/Procedures: Laparoscopy Endocrine Surgical History: Reports: None Neurological Surgical History: Reports: None 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 Surgical History: Reports: Other (See Below) Other 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 Surgeries/Procedures:: Closed Reduction Fx Femur Oncologic Surgical History: Reports: None Dermatological Surgical History: Reports: None Social & Family History - Family History Family Medical History: Noncontributory - Tobacco Use Smoking Status *Q: Never Smoker Second Hand Smoke Exposure: No - Caffeine Use Caffeine Use: Reports: None - Recreational Drug Use Recreational Drug Use: No ED ROS GENERAL - Review of Systems Review Of Systems: Comprehensive ROS is negative, except as noted in HPI. ED EXAM,LOWER BACK PAIN/INJURY - Physical Exam Exam: See Below (See dictation) Course - Vital Signs Last Recorded V/S: Last Vital Signs Temp 97.6 F 07/22/19 16:09 Pulse 106 H 07/22/19 16:09 Resp 18 07/22/19 16:09 BP 190/93 H 07/22/19 16:09 Pulse Ox 96 07/22/19 16:09 - Orders/Labs/Meds Labs: Laboratory Tests 07/22/19 07/22/19 Range/Units 16:44 16:44 Urine Color YELLOW Urine Appearance SLT CLOUDY Urine pH 6.5 (5.0-8.0) Ur Specific [place] 1.020 (1.001-1.035) Urine Protein NEGATIVE (NEGATIVE) mg/dL Urine Glucose (UA) NEGATIVE (NEGATIVE) mg/dL Urine Ketones NEGATIVE (NEGATIVE) mg/dL Urine Occult Blood LARGE H (NEGATIVE) Urine Nitrite NEGATIVE (NEGATIVE) Urine Bilirubin NEGATIVE (NEGATIVE) Urine Urobilinogen 0.2 (<2.0) EU/dL Ur Leukocyte Esterase NEGATIVE (NEGATIVE) Urine RBC 8-12 (0-2/HPF) Urine WBC 1-2 (0-5/HPF) Ur Epithelial Cells FEW (NONE-FEW) Amorphous Sediment FEW (NEGATIVE) Urine Bacteria FEW (NEGATIVE) Urine Mucus FEW (NONE-MOD) Urine HCG, Qual NEGATIVE (NEGATIVE) Meds: Medications Discontinued Medications Generic Name Dose Route Start Last Admin Trade Name Freq PRN Reason Stop Dose Admin Ketorolac Tromethamine 60 mg 07/22/19 16:15 07/22/19 17:08 Toradol IM 07/22/19 16:16 60 mg ONETIME ONE Administration Orphenadrine Citrate 60 mg 07/22/19 16:15 07/22/19 17:08 Norflex IM 07/22/19 16:16 60 mg ONETIME ONE Administration Tramadol HCl 50 mg 07/22/19 17:43 Ultram PO 07/22/19 17:44 ONETIME ONE Departure - Departure Time of Disposition: 17:46 Disposition: Home, Self-Care 01 Clinical Impression: Lumbar back pain - Discharge Information Prescriptions: Cyclobenzaprine [Flexeril] 10 mg PO TID PRN #21 tab PRN Reason: Muscle Spasm Diclofenac Sodium [Voltaren] 75 mg PO BIDMEALS PRN #30 tab.cr PRN Reason: Pain Instructions: Acute Back Pain, Adult Referrals: Tao Godinez MD [Primary Care Provider] - Forms: ED Department Discharge Additional Instructions: The following information is given to patients seen in the emergency department who are being discharged to home. This information is to outline your options for follow-up care. We provide all patients seen in our emergency department with a follow-up referral. The need for follow-up, as well as the timing and circumstances, are variable depending upon the specifics of your emergency department visit. If you don't have a primary care physician on staff, we will provide you with a referral. We always advise you to contact your personal physician following an emergency department visit to inform them of the circumstance of the visit and for follow-up with them and/or the need for any referrals to a consulting specialist. The emergency department will also refer you to a specialist when appropriate. This referral assures that you have the opportunity for follow-up care with a specialist. All of these measure are taken in an effort to provide you with optimal care, which includes your follow-up. Under all circumstances we always encourage you to contact your private physician who remains a resource for coordinating your care. When calling for follow-up care, please make the office aware that this follow-up is from your recent emergency room visit. If for any reason you are refused follow-up, please contact the [facility] Emergency Department at and asked to speak to the emergency department charge nurse. [facility] [address] [place] [id number] [id number] 1. The medication you received today does cause drowsiness, so do not drive for the remaining day 2. When resting please lay on a flat firm surface. Limit your immobility to prevent muscle stiffness. Get up to ambulate/move around/gentle stretching multiple times throughout the day. May alternate heat and ice to the painful areas 3. Tylenol as needed for back pain. Otherwise take the prescribed Flexeril and diclofenac as directed. Diclofenac is an anti-inflammatory so do not take any additional NSAIDs with this medication, such as ibuprofen or Aleve. Flexeril as a muscle relaxant, this medication may cause drowsiness a do not take it will driving her needing to be functioning outside of the house. 4. Please follow-up with your primary care provider as we discussed. Return to the ED as needed and as discussed. Sepsis Event Note - Evaluation Sepsis Screening Result: No Definite Risk - Focused Exam Vital Signs: Vital Signs Temp Pulse Resp BP Pulse Ox 07/22/19 16:09 97.6 F 106 H 18 190/93 H 96 Date Exam was Performed: 07/22/19 Time Exam was Performed: 17:45
--- NOTE | 2019-07-22 17:40 | CR ---
Abdomen: Supine view of the abdomen was obtained. Comparison: No prior abdominal x-ray, previous CT abdomen and pelvis exam of 05/13/19. Calcifications are seen within the pelvis which are compatible with phleboliths. Slight increased stool within the colon is seen. Bowel gas pattern is otherwise unremarkable. Nonobstructing stone is noted within the lower left kidney. No other abnormal calcifications are seen. Bony structures appear within normal limits. Impression: 1. Findings as noted above. 2. Nothing acute is seen. Diagnostic code #2 This report was dictated in Mountain Standard Time
[2019-07-22] MEDS ORDERED: traMADol 50 MG Tab PO ONE (17:43)
[2019-07-22 18:05] VITALS: BP 169/108; PULSE 98
== END 2019-07-22 18:06 | disposition home or self-care (01) ==
LOC: MW.ED 15:34
DX: S39.012A Strain of muscle, fascia and tendon of lower back, initial encounter (principal); E03.9 Hypothyroidism, unspecified; D50.9 Iron deficiency anemia, unspecified; F41.9 Anxiety disorder, unspecified; F32.9 Major depressive disorder, single episode, unspecified; E66.9 Obesity, unspecified; Z88.1 Allergy status to other antibiotic agents; Z88.5 Allergy status to narcotic agent; Z91.09 Other allergy status, other than to drugs and biological substances; Z79.899 Other long term (current) drug therapy; Z68.41 Body mass index [BMI] 40.0-44.9, adult; X58.XXXA Exposure to other specified factors, initial encounter
CPT/HCPCS: 72100; 81001; 81025; 96372; 99284; A9270; J1885; J2360; 99283

== ENCOUNTER 2019-12-12 11:41 | Emergency (ER) | payer BC, OTHER ==
[2019-12-12] MEDS ORDERED: Metoclopramide 10 MG/2 ML SDV IVPUSH ONE (12:20)
[2019-12-12] MEDS ORDERED: diphenhydrAMINE 50 MG/ML SDV IVPUSH ONE (12:20)
[2019-12-12] MEDS ORDERED: Sodium Chloride 0.9% 1,000 ML IV ONE (12:21)
[2019-12-12] MEDS ORDERED: Metoprolol Succinate 50 MG Tab.ER PO ONE (12:22)
[2019-12-12] MEDS ORDERED: Sodium Chloride 0.9% 2.5 ML Syringe FLUSH PRN (12:22)
[2019-12-12] MEDS ORDERED: Sodium Chloride 0.9% 10 ML Syringe FLUSH PRN (12:22)
--- NOTE | 2019-12-12 12:27 | EDM.PDOC ---
ED HPI GENERAL MEDICAL PROBLEM - General Chief Complaint: Cardiovascular Problem Stated Complaint: HIGH BP Time Seen by Provider: 12/12/19 11:56 - History of Present Illness INITIAL COMMENTS - FREE TEXT/NARRATIVE: History of present illness: Presents to the emergency department with a headache for 3 days. Her primary care doctor sent her here because she has had elevated blood pressures in the 180s over 1 teens she received 2 doses of clonidine but did not get any better. Headache is positional worse with walking and moving she has no vision changes no weakness no nausea no vomiting no fever this was not associated with any trauma. She is a prior history of migraines as a child she did have episodes of tumor cerebri in the past she has not had prior hypertension. [place] any chest pain she does have some pain in her upper back when she walks only it is only present when she walks it is not present when she is at rest or moving around otherwise. There is been no trouble breathing no abdominal pain nothing seems to make the headache better she tried Motrin Tylenol at home Review of systems: As per history of present illness and below otherwise all systems reviewed and negative. Past medical history: As per history of present illness and as reviewed below otherwise noncontributory. Surgical history: As per history of present illness and as reviewed below otherwise noncontributory. Social history: No reported history of drug or alcohol abuse. Family history: As per history of present illness and as reviewed below otherwise noncontributory. Physical exam: HEENT: Atraumatic, normocephalic, pupils reactive, negative for conjunctival pallor or scleral icterus, mucous membranes moist, throat clear, neck supple, nontender, trachea midline. Lungs: Clear to auscultation, breath sounds equal bilaterally, chest nontender. Heart: S1S2, regular, negative for clicks, rubs, or JVD. Pulses are equal in the upper extremities Abdomen: Soft, nondistended, nontender. Negative for masses or hepatosplenome rafael. Negative for costovertebral tenderness. Pelvis: Stable nontender. Genitourinary: Deferred. Rectal: Deferred. Extremities: Atraumatic, negative for cords or calf pain. Neurovascular unremarkable. Neuro: Awake, alert, oriented. Cranial nerves II through XII unremarkable. Cerebellum unremarkable. Motor and sensory unremarkable throughout. Exam nonfocal. No meningismus there is no pronator drift Diagnostics: [] Therapeutics: [] Impression: [] Plan: Patient will go to MRI after Benadryl Reglan and a dose of metoprolol [] Definitive disposition and diagnosis as appropriate pending reevaluation and review of above. headache Pain Score (Numeric/FACES): 4 - Related Data Allergies Allergy/AdvReac Type Severity Reaction Status Date / Time adhesive tape Allergy Hives Verified 12/12/19 11:53 doxycycline Allergy Rash Verified 12/12/19 11:53 morphine Allergy Rash Verified 12/12/19 11:53 oxycodone [Oxycodone] Allergy Rash Verified 12/12/19 11:53 Home Meds: Home Meds Ferrous Sulfate [Iron] 650 mg PO DAILY 10/21/17 [History] Levothyroxine Sodium [Synthroid] 1 tab PO DAILY 12/12/19 [History] Metoprolol Succinate 50 mg PO DAILY #30 tab.er.24h 12/12/19 [Rx] Venlafaxine [Effexor XR] 1 tab PO DAILY 12/12/19 [History] Past Medical History HEENT History: Reports: Impaired Vision, Other (See Below) Other HEENT History: wears glasses/contacts Hx of fx nose Cardiovascular History: Reports: Hypertension Respiratory History: Reports: None Gastrointestinal History: Reports: None Genitourinary History: Reports: Renal Calculus 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: 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 History: Reports: Fracture Other 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 History: hx of bilateral legs, hand Neurological History: Reports: Concussion, Migraines Psychiatric History: Reports: Anxiety, Depression Endocrine/Metabolic History: Reports: Hypothyroidism, Obesity/BMI 30+ Other Endocrine/Metabolic History: hx of Hashimotos disease Hematologic History: Reports: Anemia, Iron Deficiency Immunologic History: Reports: None Oncologic (Cancer) History: Reports: None Dermatologic History: Reports: None - Infectious Disease History Infectious Disease History: Reports: Chicken Pox - Past Surgical History Head Surgeries/Procedures: Reports: None HEENT Surgical History: Reports: Oral Surgery, Tonsillectomy Other HEENT Surgeries/Procedures: wisdom teeth Cardiovascular Surgical History: Reports: None Respiratory Surgical History: Reports: None GI Surgical History: Reports: Bariatric Procedure, Other (See Below) Other GI Surgeries/Procedures: removal of gastric lap band Female Surgical History: Reports: Breast Biopsy, Section, D&C, Other (See Below) Other Female Surgeries/Procedures: Laparoscopy Endocrine Surgical History: Reports: None Neurological Surgical History: Reports: None 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 Surgical History: Reports: Other (See Below) Other 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 Surgeries/Procedures:: Closed Reduction Fx Femur Oncologic Surgical History: Reports: None Dermatological Surgical History: Reports: None Social & Family History - Family History Family Medical History: Noncontributory - Tobacco Use Smoking Status *Q: Current Every Day Smoker Years of Tobacco use: 15 Packs/Tins Daily: 0.5 - Caffeine Use Caffeine Use: Reports: Coffee - Recreational Drug Use Recreational Drug Use: No ED ROS GENERAL - Review of Systems Review Of Systems: See Below ED EXAM, GENERAL - Physical Exam Exam: See Below Course - Vital Signs Text/Narrative:: The patient's primary care sugar ordered the patient an MRI at 1:00 today. Patient would like to get to this test on time. I discussed with her darcie burnham the emergency department work-up for hypertensive headache includes a CT scan of the brain without contrast and a lumbar puncture. She is refusing this at this time would like to proceed with the MRI she is fully aware of the limitations of imaging. I will start her on some Reglan and Benadryl for comfort I am going to start her on metoprolol for her hypertension and will give her a dose in the emergency department to start. We will keep her as a patient while she gets her MRI and reviewed the results with the patient At 3:05 PM I reexamined the patient she is neurologically normal. The Benadryl and Reglan completely resolved her headache. The MRI was read by radiology as normal with no abnormalities noted. She has improved blood pressure management in the emergency department I will prescribe her a months worth of metoprolol as a start. Again I mentioned to the patient that I cannot fully exclude a subarachnoid hemorrhage nor can I diagnose pseudotumor cerebri without doing a lumbar puncture in the emergency department she does not wish to do this I am recommending she follow-up with ophthalmology for further evaluation of her headaches as well as her primary care doctor for management of her blood pressure. Last Recorded V/S: Last Vital Signs Temp 35.9 C L 12/12/19 11:50 Pulse 87 12/12/19 14:12 Resp 19 12/12/19 14:12 BP 164/84 H 12/12/19 14:12 Pulse Ox 97 12/12/19 14:12 - Orders/Labs/Meds Orders: Active Orders 24 hr Category Date Time Status Sodium Chloride 0.9% [Saline Flush] Med 12/12/19 12:22 Active 10 ml FLUSH ASDIRECTED PRN Sodium Chloride 0.9% [Saline Flush] Med 12/12/19 12:22 Active 2.5 ml FLUSH ASDIRECTED PRN Saline Lock Insert [OM.PC] Stat Oth 12/12/19 12:22 Ordered Medication Orders Sodium Chloride (Saline Flush) 10 ml FLUSH ASDIRECTED PRN PRN Reason: Keep Vein Open Last Admin: 12/12/19 12:32 Dose: 10 ml Documented by: GABRIELLA Sodium Chloride (Saline Flush) 2.5 ml FLUSH ASDIRECTED PRN PRN Reason: Keep Vein Open Last Admin: 12/12/19 12:32 Dose: 2.5 ml Documented by: GABRIELLA Meds: Medications Generic Name Dose Route Start Last Admin Trade Name Freq PRN Reason Stop Dose Admin Sodium Chloride 10 ml 12/12/19 12:22 12/12/19 12:32 Saline Flush FLUSH 10 ml ASDIRECTED PRN Administration Keep Vein Open Sodium Chloride 2.5 ml 12/12/19 12:22 12/12/19 12:32 Saline Flush FLUSH 2.5 ml ASDIRECTED PRN Administration Keep Vein Open Discontinued Medications Generic Name Dose Route Start Last Admin Trade Name Freq PRN Reason Stop Dose Admin Diphenhydramine HCl 25 mg 12/12/19 12:20 12/12/19 12:29 Benadryl IVPUSH 12/12/19 12:21 25 mg ONETIME ONE Administration Gadobenate Dimeglumine 20 ml 12/12/19 13:36 Multihance IVPUSH 12/12/19 13:37 ONETIME STA Sodium Chloride 1,000 mls @ 999 mls/hr 12/12/19 12:21 12/12/19 12:29 Normal Saline IV 12/12/19 13:21 999 mls/hr .Bolus ONE Administration Metoclopramide HCl 10 mg 12/12/19 12:20 12/12/19 12:29 Reglan IVPUSH 12/12/19 12:21 10 mg ONETIME ONE Administration Metoprolol Succinate 50 mg 12/12/19 12:22 12/12/19 12:29 Toprol Xl PO 12/12/19 12:23 50 mg ONETIME ONE Administration Departure - Departure Time of Disposition: 15:06 Disposition: Home, Self-Care 01 Condition: Good Clinical Impression: Hypertension Qualifiers: Hypertension type: essential hypertension Qualified Code(s): I10 - Essential (primary) hypertension Headache Qualifiers: Headache type: unspecified Instructions: Preventing Hypertension, General Headache Without Cause, [id number] Referrals: Annette Thakkar NP [Primary Care Provider] - Forms: ED Department Discharge Additional Instructions: The following information is given to patients seen in the emergency department who are being discharged to home. This information is to outline your options for follow-up care. We provide all patients seen in our emergency department with a follow-up referral. The need for follow-up, as well as the timing and circumstances, are variable depending upon the specifics of your emergency department visit. If you don't have a primary care physician on staff, we will provide you with a referral. We always advise you to contact your personal physician following an emergency department visit to inform them of the circumstance of the visit and for follow-up with them and/or the need for any referrals to a consulting specialist. The emergency department will also refer you to a specialist when appropriate. This referral assures that you have the opportunity for follow-up care with a specialist. All of these measure are taken in an effort to provide you with optimal care, which includes your follow-up. Under all circumstances we always encourage you to contact your private physician who remains a resource for coordinating your care. When calling for follow-up care, please make the office aware that this follow-up is from your recent emergency room visit. If for any reason you are refused follow-up, please contact the [facility] Emergency Department at and asked to speak to the emergency department charge nurse. Sepsis Event Note (ED) - Evaluation Sepsis Screening Result: No Definite Risk - Focused Exam Vital Signs: Vital Signs Temp Pulse Pulse Resp BP BP Pulse Ox 12/12/19 14:12 87 19 164/84 H 97 12/12/19 12:29 97 152/91 H 12/12/19 12:05 172/103 H 12/12/19 11:50 35.9 C L 108 H 18 186/111 H 95 - My Orders Last 24 Hours: My Active Orders 12/12/19 12:22 Sodium Chloride 0.9% [Saline Flush] 10 ml FLUSH ASDIRECTED PRN Sodium Chloride 0.9% [Saline Flush] 2.5 ml FLUSH ASDIRECTED PRN Saline Lock Insert [OM.PC] Stat - Assessment/Plan Last 24 Hours: My Active Orders 12/12/19 12:22 Sodium Chloride 0.9% [Saline Flush] 10 ml FLUSH ASDIRECTED PRN Sodium Chloride 0.9% [Saline Flush] 2.5 ml FLUSH ASDIRECTED PRN Saline Lock Insert [OM.PC] Stat
[2019-12-12] MEDS ORDERED: Gadobenate Dimeglumine 529 MG/ML 20 ML SDV IVPUSH STA (13:36)
--- NOTE | 2019-12-12 14:37 | MR ---
MRI brain Technique: T1 sagittal and coronal; T1, T2, FLAIR and diffusion axial; postcontrast T1 fat-suppressed sagittal, coronal and axial images were obtained. Findings: Ventricles along with basal cisterns and sulci over the convexities are within normal limits for the patient's age. No abnormal signal is seen within the brain parenchyma. No midline shift or mass-effect is seen. No abnormal enhancement is seen within the brain parenchyma. No acute diffusion abnormalities are seen. Impression: 1. No abnormality is appreciated on MRI study of the brain. Diagnostic code #1 This report was dictated in MDT
[2019-12-12 16:31] VITALS: BP 134/81; PULSE 76
== END 2019-12-12 15:35 | disposition home or self-care (01) ==
LOC: MW.ED 11:41
DX: I10 Essential (primary) hypertension (principal); F41.9 Anxiety disorder, unspecified; F32.9 Major depressive disorder, single episode, unspecified; E03.9 Hypothyroidism, unspecified; E66.9 Obesity, unspecified; Z68.42 Body mass index [BMI] 45.0-49.9, adult; F17.210 Nicotine dependence, cigarettes, uncomplicated; Z91.048 Other nonmedicinal substance allergy status; Z88.1 Allergy status to other antibiotic agents; Z88.5 Allergy status to narcotic agent; Z79.899 Other long term (current) drug therapy
CPT/HCPCS: 70553; 70553-26; 96374; 96375; 99283; 99284-25; A9270-GY; J1200; J2765; J7030

== ENCOUNTER 2020-06-14 05:55 | Emergency (ER) | payer BC ==
[2020-06-14] MEDS: Albuterol/Ipratropium 3.0-0.5 MG/3 ML Neb Soln NEB ONE (06:21)
[2020-06-14] MEDS: Acetaminophen 500 MG Tab PO ONE (06:25)
--- NOTE | 2020-06-14 06:25 | EDM.PDOC ---
<Dick Goldberg - Last Filed: 06/14/20 06:31> ED HPI GENERAL MEDICAL PROBLEM - General Chief Complaint: Chest Pain Stated Complaint: SOB Time Seen by Provider: 06/14/20 06:05 - History of Present Illness INITIAL COMMENTS - FREE TEXT/NARRATIVE: HISTORY AND PHYSICAL: History of present illness: This is a 39-year-old female with a history significant for hypertension, kidney stones, status post laparoscopic band (with eventual reversal of the laparoscopic band secondary to failure), who presents ER today secondary to shortness of breath that started yesterday. Patient reports that she was diagnosed with coronavirus on May 07. She reports that on May 18 she was evaluated secondary to her shortness of breath and had an elevated D-dimer. Patient reports that it a CT angiogram of her chest at that time and was diagnosed with pneumonia and was started and completed a full course of antibiotics. Patient reports that she has been doing fairly well up until yesterday when she started having low-grade fever 200.4 as well as increasing shortness of breath. Patient reports that she has chest burning and discomfort with deep inspiration as well as coughing. Patient reports that she had a yellow-green productive cough for the last 1 to 2 days. She reports that she had a temperature of 100.4 yesterday but resolved spontaneously on its own without any antipyretics. Patient reports that she has been given an albuterol MDI secondary to her coronavirus diagnosis and she has been using it intermittently since she is been diagnosed. She reports that yesterday she used it in the morning and had minimal relief. She reports that she continued to feel short of breath and yesterday night she used it multiple times without any relief in her dyspnea. Patient reports she is coming to the ED now secondary to worsening shortness of breath and worsening wheezing that she is able to hear. Patient denies any nausea, vomiting, diarrhea. Patient denies any dysuria, frequency, urgency. Patient denies any abdominal discomfort. Patient denies any change in her bowel or bladder habits. Patient denies any calf tenderness or swelling. Patient denies any hemoptysis. Patient denies any pain rating down her arms, jaw, back. Patient denies any diaphoresis or nausea associated with the chest discomfort. Patient present the chest discomfort increases with deep inspiration as well as coughing. Patient denies any history of diabetes, liver, prior lung disease, asthma, COPD, heart disease, CHF, CAD. Patient denies any history of PE or DVT. 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 Patient has had a LAP-BAND surgery with reversal secondary to failure of it working. Patient denies any other abdominal or chest surgeries. Patient denies any usage of tobacco alcohol or drugs. Patient reports that she gets hives with usage of any morphine or oxycodone. Review of systems: As per history of present illness and below otherwise all systems reviewed and negative. Past medical history: As per history of present illness and as reviewed below otherwise noncontributory. Surgical history: As per history of present illness and as reviewed below otherwise noncontributory. Social history: No reported history of drug or alcohol abuse. Family history: As per history of present illness and as reviewed below otherwise noncontributory. Physical exam: Constitutional: Patient is oriented to person, place, and time. Appears well- developed and well-nourished. No distress. HEENT: Moist mucous membranes Head: Normocephalic and atraumatic Eyes: Right eye exhibits no discharge. Left eye exhibits no discharge. No scleral icterus Neck: Normal range of motion. No tracheal deviation present. Cardiovascular: Tachycardic with a heart rate of 115. Normal S1-S2. Pulmonary: Mild increased respiratory effort. Patient has diffuse expiratory next Tory wheezing. Patient is able speak in full sentences. Patient's pulse ox 98% on room air. Abdominal: Soft, nontender, nondistended, normal active bowel sounds. 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: Normal range of motion Neurologic: Alert and oriented to person, place and time. Skin: [place], warm and dry. Psychiatric: Normal mood and affect. Behavior is normal. Judgment and thought content normal. Nursing note and vital signs have been reviewed This patient was seen and evaluated during the 2019 SARS-CoV-2 novel coronavirus pandemic period. Community viral transmission is ongoing at time of this encounter and the emergency department is operating under pandemic response procedures. Diagnostics: CBC, CMP, troponin, BNP. Chest x-ray PA and lateral. EKG Influenza a and B EKG: As interpreted by ER physician: Yusuf: Nonspecific ST-T wave abnormalities Normal P wave and QRS axis No evidence of ST elevation MO Sinus tachycardia with a heart rate of 120 Therapeutics: DuoNeb x3 Solu-Medrol 125 mg IV Assessment and plan: This is a 39-year-old female who presents ER today secondary to shortness of breath. Patient reports she has been diagnosed with coronavirus on May 07. And subsequently was diagnosed with pneumonia that she was treated for with antibiotics. Patient reports that she has been slowly improving from her coronavirus infection however over the last 1 to 2 days she has had increasing wheezing and increasing shortness of breath that has been unrelieved with her albuterol MDIs. Patient's physical exam reveals a well-developed well-nourished female who does not appear to be in any significant respiratory distress however she does have an increased aspiratory effort. Patient has diffuse expiratory expiratory wheezing. While in the ED, the patient will have a chest x-ray to rule out pneumonia. Patient will have an EKG as well as basic labs including a BNP and troponin. We will also check an influenza a and B. Patient will be given DuoNeb treatments as well as Solu-Medrol and will be reevaluated. Patient's blood pressure is markedly elevated 180/127 at this time however it is unclear whether or not this is secondary to her shortness of breath/anxiety. This will need to be reevaluated once patient is stabilized from a respiratory standpoint. Signed out to my colleague Dr. Bland at shift change, refer to their note for the final disposition. Definitive disposition and diagnosis as appropriate pending reevaluation and review of above. chest Pain Score (Numeric/FACES): 2 - Related Data Allergies Allergy/AdvReac Type Severity Reaction Status Date / Time adhesive tape Allergy Hives Verified 06/14/20 06:07 doxycycline Allergy Rash Verified 06/14/20 06:07 morphine Allergy Rash Verified 06/14/20 06:07 oxycodone [Oxycodone] Allergy Rash Verified 06/14/20 06:07 Home Meds: Home Meds Levothyroxine Sodium [Synthroid] 1 tab PO DAILY 12/12/19 [History] Albuterol Sulfate [Albuterol Sulfate Hfa] 2 puff INH ASDIRECTED PRN 06/14/20 [History] Sertraline [Zoloft] 25 mg PO DAILY 06/14/20 [History] predniSONE 40 mg PO WITHBREAKFAST 5 Days #10 tab 06/14/20 [Rx] Past Medical History HEENT History: Reports: Impaired Vision, Other (See Below) Other HEENT History: wears glasses/contacts Hx of fx nose Cardiovascular History: Reports: Hypertension Respiratory History: Reports: None Gastrointestinal History: Reports: None Genitourinary History: Reports: Renal Calculus 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: 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 History: Reports: Fracture Other 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 History: hx of bilateral legs, hand Neurological History: Reports: Concussion, Migraines Psychiatric History: Reports: Anxiety, Depression Endocrine/Metabolic History: Reports: Hypothyroidism, Obesity/BMI 30+ Other Endocrine/Metabolic History: hx of Hashimotos disease Hematologic History: Reports: Anemia, Iron Deficiency Immunologic History: Reports: None Oncologic (Cancer) History: Reports: None Dermatologic History: Reports: None - Infectious Disease History Infectious Disease History: Reports: Chicken Pox, Other (See Below) Other Infectious Disease History: COVID-19 - Past Surgical History Head Surgeries/Procedures: Reports: None HEENT Surgical History: Reports: Oral Surgery, Tonsillectomy Other HEENT Surgeries/Procedures: wisdom teeth Cardiovascular Surgical History: Reports: None Respiratory Surgical History: Reports: None GI Surgical History: Reports: Bariatric Procedure, Other (See Below) Other GI Surgeries/Procedures: removal of gastric lap band Female Surgical History: Reports: Breast Biopsy, Section, D&C, Other (See Below) Other Female Surgeries/Procedures: Laparoscopy Endocrine Surgical History: Reports: None Neurological Surgical History: Reports: None 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 Surgical History: Reports: Other (See Below) Other 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 Surgeries/Procedures:: Closed Reduction Fx Femur Oncologic Surgical History: Reports: None Dermatological Surgical History: Reports: None Social & Family History - Family History Family Medical History: No Pertinent Family History - Tobacco Use Tobacco Use Status *Q: Former Tobacco User Used Tobacco, but Quit: Yes Month/Year Tobacco Last Used: 2019 - Caffeine Use Caffeine Use: Reports: Coffee - Recreational Drug Use Recreational Drug Use: No ED ROS GENERAL - Review of Systems Review Of Systems: See Below ED EXAM, GENERAL - Physical Exam Exam: See Below #1 Interpretation EKG Interpretation Comments: EKG: As interpreted by ER physician: Yusuf: Nonspecific ST-T wave abnormalities Normal P wave and QRS axis No evidence of ST elevation MO Sinus tachycardia with a heart rate of 120 Departure - Departure Disposition: Home, Self-Care 01 Clinical Impression: Reactive airway disease - Discharge Information Prescriptions: predniSONE 40 mg PO WITHBREAKFAST 5 Days #10 tab Instructions: Asthma, Adult Referrals: [facility] [Ordering Only Provider] - Forms: ED Department Discharge Additional Instructions: For the next 4 days I encourage you to take 2 to 3 puffs of your albuterol inhaler every 4-6 hours. The first dose of prednisone should be tomorrow morning. If your symptoms worsen and are not responding to treatment I encourage you to return to the ER or follow-up with your primary care doctor. If you are not feeling your normal self by next week I encourage you to follow- up with your primary care doctor if you do not have a primary care doctor he can be seen in the [facility]. The following information is given to patients seen in the emergency department who are being discharged to home. This information is to outline your options for follow-up care. We provide all patients seen in our emergency department with a follow-up referral. The need for follow-up, as well as the timing and circumstances, are variable depending upon the specifics of your emergency department visit. If you don't have a primary care physician on staff, we will provide you with a referral. We always advise you to contact your personal physician following an emergency department visit to inform them of the circumstance of the visit and for follow-up with them and/or the need for any referrals to a consulting specialist. The emergency department will also refer you to a specialist when appropriate. This referral assures that you have the opportunity for follow-up care with a specialist. All of these measure are taken in an effort to provide you with optimal care, which includes your follow-up. Under all circumstances we always encourage you to contact your private physician who remains a resource for coordinating your care. When calling for follow-up care, please make the office aware that this follow-up is from your recent emergency room visit. If for any reason you are refused follow-up, please contact the [facility] Emergency Department at and asked to speak to the emergency department charge nurse. Sepsis Event Note (ED) - Evaluation Sepsis Screening Result: Possible Sepsis Risk <Jean Carlos Bland - Last Filed: 06/14/20 09:20> Course - Vital Signs Last Recorded V/S: Last Vital Signs Temp 96.9 F 06/14/20 06:09 Pulse 104 H 06/14/20 08:30 Resp 17 06/14/20 08:30 BP 137/85 06/14/20 08:30 Pulse Ox 95 06/14/20 08:30 - Orders/Labs/Meds Orders: Active Orders 24 hr Category Date Time Status EKG Documentation Completion [RC] AM Care 06/14/20 06:12 Active Sodium Chloride 0.9% [Saline Flush] Med 06/14/20 06:12 Active 10 ml FLUSH ASDIRECTED PRN Sodium Chloride 0.9% [Saline Flush] Med 06/14/20 06:12 Active 2.5 ml FLUSH ASDIRECTED PRN Isolation [COMM] Routine Oth 06/14/20 06:12 Active Saline Lock Insert [OM.PC] Stat Oth 06/14/20 06:12 Ordered Medication Orders Sodium Chloride (Saline Flush) 10 ml FLUSH ASDIRECTED PRN PRN Reason: Keep Vein Open Last Admin: 06/14/20 07:29 Dose: 10 ml Documented by: [id number] Sodium Chloride (Saline Flush) 2.5 ml FLUSH ASDIRECTED PRN PRN Reason: Keep Vein Open Last Admin: 06/14/20 07:29 Dose: 2.5 ml Documented by: [id number] Labs: Laboratory Tests 06/14/20 06/14/20 06/14/20 Range/Units 06:10 06:10 06:10 WBC 10.15 (4.0-11.0) K/uL RBC 4.59 (4.30-5.90) M/uL Hgb 12.4 (12.0-16.0) g/dL Hct 40.4 (36.0-46.0) % MCV 88.0 (80.0-98.0) fL MCH 27.0 (27.0-32.0) pg MCHC 30.7 L (31.0-37.0) g/dL RDW Std Deviation 50.5 (28.0-62.0) fl RDW Coeff of [place] 16 H (11.0-15.0) % Plt Count 319 (150-400) K/uL MPV 9.10 (7.40-12.00) fL Neut % (Auto) 65.8 (48.0-80.0) % Lymph % (Auto) 23.4 (16.0-40.0) % [place] % (Auto) 7.0 (0.0-15.0) % Eos % (Auto) 3.4 (0.0-7.0) % Baso % (Auto) 0.4 (0.0-1.5) % Neut # (Auto) 6.7 H (1.4-5.7) K/uL Lymph # (Auto) 2.4 (0.6-2.4) K/uL [place] # (Auto) 0.7 (0.0-0.8) K/uL Eos # (Auto) 0.4 (0.0-0.7) K/uL Baso # (Auto) 0.0 (0.0-0.1) K/uL Nucleated RBC % 0.0 /100WBC Nucleated RBCs # 0 K/uL D-Dimer, Quantitative 1.12 H (0.0-0.50) mg/L FEU Sodium 139 (136-145) mmol/L Potassium 3.9 (3.5-5.1) mmol/L Chloride 105 (98-107) mmol/L Carbon Dioxide 25.9 (21.0-32.0) mmol/L BUN 11 (7.0-18.0) mg/dL Creatinine 1.0 (0.6-1.0) mg/dL Est Cr Clr Drug Dosing 72.11 mL/min Estimated GFR (MDRD) > 60.0 ml/min Glucose 163 H (74-106) mg/dL Calcium 9.2 (8.5-10.1) mg/dL Total Bilirubin 0.2 (0.2-1.0) mg/dL AST 19 (15-37) IU/L ALT 33 (14-63) IU/L Alkaline Phosphatase 94 (46-116) U/L Troponin I < 0.050 (0.000-0.056) ng/mL B-Natriuretic Peptide (<100) PG/ML Total Protein 7.3 (6.4-8.2) g/dL Albumin 3.3 L (3.4-5.0) g/dL Globulin 4.0 (2.6-4.0) g/dL Albumin/Globulin Ratio 0.8 L (0.9-1.6) 06/14/ Range/Units 06:10 WBC (4.0-11.0) K/uL RBC (4.30-5.90) M/uL Hgb (12.0-16.0) g/dL Hct (36.0-46.0) % MCV (80.0-98.0) fL MCH (27.0-32.0) pg MCHC (31.0-37.0) g/dL RDW Std Deviation (28.0-62.0) fl RDW Coeff of [place] (11.0-15.0) % Plt Count (150-400) K/uL MPV (7.40-12.00) fL Neut % (Auto) (48.0-80.0) % Lymph % (Auto) (16.0-40.0) % [place] % (Auto) (0.0-15.0) % Eos % (Auto) (0.0-7.0) % Baso % (Auto) (0.0-1.5) % Neut # (Auto) (1.4-5.7) K/uL Lymph # (Auto) (0.6-2.4) K/uL [place] # (Auto) (0.0-0.8) K/uL Eos # (Auto) (0.0-0.7) K/uL Baso # (Auto) (0.0-0.1) K/uL Nucleated RBC % /100WBC Nucleated RBCs # K/uL D-Dimer, Quantitative (0.0-0.50) mg/L FEU Sodium (136-145) mmol/L Potassium (3.5-5.1) mmol/L Chloride (98-107) mmol/L Carbon Dioxide (21.0-32.0) mmol/L BUN (7.0-18.0) mg/dL Creatinine (0.6-1.0) mg/dL Est Cr Clr Drug Dosing mL/min Estimated GFR (MDRD) ml/min Glucose (74-106) mg/dL Calcium (8.5-10.1) mg/dL Total Bilirubin (0.2-1.0) mg/dL AST (15-37) IU/L ALT (14-63) IU/L Alkaline Phosphatase (46-116) U/L Troponin I (0.000-0.056) ng/mL B-Natriuretic Peptide 7 (<100) PG/ML Total Protein (6.4-8.2) g/dL Albumin (3.4-5.0) g/dL Globulin (2.6-4.0) g/dL Albumin/Globulin Ratio (0.9-1.6) Meds: Medications Generic Name Dose Route Start Last Admin Trade Name Robinq PRN Reason Stop Dose Admin Sodium Chloride 10 ml 06/14/20 06:12 06/14/20 07:29 Saline Flush FLUSH 10 ml ASDIRECTED PRN Administration Keep Vein Open Sodium Chloride 2.5 ml 06/14/20 06:12 06/14/20 07:29 Saline Flush FLUSH 2.5 ml ASDIRECTED PRN Administration Keep Vein Open Discontinued Medications Generic Name Dose Route Start Last Admin Trade Name Robinq PRN Reason Stop Dose Admin Acetaminophen 1,000 mg 06/14/20 06:12 06/14/20 06:25 Tylenol Extra Strength PO 06/14/20 06:13 1,000 mg ONETIME ONE Administration Acetaminophen Confirm 06/14/20 06:28 06/14/20 06:30 Tylenol Extra Strength Administered 06/14/20 06:29 Not Given Dose 1,000 mg .ROUTE .STK-MED ONE Albuterol/Ipratropium 9 ml 06/14/20 06:12 06/14/20 06:21 Duoneb 3.0-0.5 Mg/3 Ml NEB 06/14/20 06:13 9 ml ONETIME ONE Administration Sodium Chloride 1,000 mls @ 999 mls/hr 06/14/20 06:12 06/14/20 06:26 Normal Saline IV 06/14/20 07:12 999 mls/hr .Bolus ONE Administration Magnesium Sulfate 2 gm in 50 mls @ 150 mls/hr 06/14/20 08:30 06/14/20 08:52 Magnesium Sulfate In Water Premix IV 06/14/20 08:49 150 mls/hr ONETIME ONE Administration Iopamidol 100 ml 06/14/20 08:02 06/14/20 08:29 Isovue Multipack-370 (76%) IVPUSH 06/14/20 08:03 100 ml ONETIME STA Administration Methylprednisolone Sodium Succinate 125 mg 06/14/20 06:12 06/14/20 06:26 Solu-Medrol IVPUSH 06/14/20 06:13 125 mg ONETIME ONE Administration Departure - Departure Time of Disposition: 09:18 Condition: Good - Discharge Information *PRESCRIPTION DRUG MONITORING PROGRAM REVIEWED*: Not Applicable *COPY OF PRESCRIPTION DRUG MONITORING REPORT IN PATIENT MARYCHUY: Not Applicable Sepsis Event Note (ED) - Focused Exam Vital Signs: Vital Signs Temp Pulse Resp BP Pulse Ox 06/14/20 08:30 104 H 17 137/85 95 06/14/20 08:01 107 H 18 161/94 H 97 06/14/20 07:30 108 H 153/92 H 94 L 06/14/20 07:11 111 H 24 H 168/94 H 95 06/14/20 06:09 96.9 F 133 H 24 H 180/127 H 95 - Assessment/Plan Assessment:: I received this patient in sign-out from Dr. Goldberg at 0700. Patient's labs are notable for a normal white count chest x-ray unremarkable D-dimer positive and CT pulmonary angiography added. Patient symptoms have shown marked improvement with her neb treatment and Solu-Medrol. She continues to improve she may be appropriate for discharge but will continue to reassess. Disposition certainly pending CT pulmonary angiography. 0800: Pt con't to have expiratory wheezing. She feels somewhat improved but magnesium added. 0920: Patient feels markedly better after the magnesium. CT unremarkable patient comfortable going home and repeat exam no significant wheezing. Dischar otilia with 5-day burst of prednisone return precautions discussed and understood.
[2020-06-14] MEDS: Sodium Chloride 0.9% 1,000 ML IV ONE (06:26)
[2020-06-14] MEDS: methylPREDNISolone Sodium Succinate 125 MG/2 ML SDV IVPUSH ONE (06:26)
[2020-06-14] MEDS: Acetaminophen 500 MG Tab ONE (06:30)
[2020-06-14 06:56] LABS: BLOOD UREA NITROGEN,BUN 11 mg/dL (7.0-18.0); CARBON DIOXIDE,CO2 25.9 mmol/L (21.0-32.0); CHLORIDE,CL 105 mmol/L (98-107); GLUCOSE RANDOM 163 mg/dL (74-106); POTASSIUM,K 3.9 mmol/L (3.5-5.1); SODIUM,NA 139 mmol/L (136-145)
--- NOTE | 2020-06-14 07:16 | CR ---
INDICATION: Dyspnea COMPARISON: The prior chest radiograph dated May 17, 2020 TECHNIQUE: PA and lateral views of the chest were acquired FINDINGS: TUBES AND LINES: None. HEART AND MEDIASTINUM: The heart size is normal. The mediastinal contour appears normal for patient age. LUNGS AND PLEURAL SPACES: The lungs appear normal.The pleural spaces are unremarkable. OSSEOUS STRUCTURES: Age-appropriate appearance. No acute focal finding. IMPRESSION: No evidence of active pulmonary disease. Dictated by Callum Goode MD @ Jun 14 2020 7:14AM Signed by Dr. Callum Goode @ Jun 14 2020 7:15AM
[2020-06-14] MEDS: Sodium Chloride 0.9% 2.5 ML Syringe FLUSH PRN (07:29)
[2020-06-14] MEDS: Sodium Chloride 0.9% 10 ML Syringe FLUSH PRN (07:29)
[2020-06-14] MEDS: Iopamidol 755 MG/ML 500 ML Multipack Bottle IVPUSH STA (08:29)
[2020-06-14] MEDS: Magnesium Sulfate/Water 2 GM/50 ML BAG IV ONE (08:52)
--- NOTE | 2020-06-14 08:52 | CT ---
INDICATION: Dyspnea and elevated D-dimer COMPARISON: May 17, 2020 TECHNIQUE: : CT examination of the chest was performed with the uneventful intravenous administration of 100 cc of Isovue 370 while thin axial sections were obtained from above the apices of the lungs to the lung bases. Please note that all CT scans at this facility use dose modulation, iterative reconstruction, and/or weight-based dosing when appropriate to reduce radiation dose to as low as reasonably achievable. FINDINGS: : HEART and MEDIASTINUM: The heart size is normal. There is no mediastinal or hilar adenopathy or mass. There is no pericardial effusion. PULMONARY ARTERIAL CIRCULATION: Evaluation is somewhat limited due to motion and patient related beam attenuation factors. Within the limitations of the study, there is no visible pulmonary embolus. LUNGS: The lungs show no focal consolidation or mass. The airways appear normal. Ground-glass opacities noted previously have improved. Minimal persistent ground-glass. PLEURAL SPACES: There is no pleural effusion, pneumothorax or pleural based mass. VISUALIZED UPPER ABDOMEN: Hepatic steatosis. Limited visualized upper abdominal structures appear normal. OSSEOUS STRUCTURES: Age-appropriate appearance. No acute fracture or destructive process. TUBES and LINES: None. IMPRESSION: 1. Evaluation of the pulmonary arterial circulation is somewhat limited but there is no finding of pulmonary embolus on this exam. 2. Persistent but substantially improved patchy ground-glass which could be atelectatic, congestive or inflammatory. No pleural effusion or pneumothorax. No new or progressive lung findings. Please note that all CT scans at this facility use dose modulation, iterative reconstruction, and/or weight-based dosing when appropriate to reduce radiation dose to as low as reasonably achievable. Dictated by Callum Goode MD @ Jun 14 2020 8:45AM Signed by Dr. Callum Goode @ Jun 14 2020 8:50AM
[2020-06-14 08:54] VITALS: PULSE 104
[2020-06-14 09:36] VITALS: BP 160/89
== END 2020-06-14 09:32 | disposition home or self-care (01) ==
LOC: MW.ED 05:55
DX: J45.909 Unspecified asthma, uncomplicated (principal); I10 Essential (primary) hypertension; F41.9 Anxiety disorder, unspecified; F32.9 Major depressive disorder, single episode, unspecified; E03.9 Hypothyroidism, unspecified; E66.9 Obesity, unspecified; Z68.42 Body mass index [BMI] 45.0-49.9, adult; Z91.048 Other nonmedicinal substance allergy status; Z88.1 Allergy status to other antibiotic agents; Z88.5 Allergy status to narcotic agent; Z79.899 Other long term (current) drug therapy; Z87.891 Personal history of nicotine dependence
CPT/HCPCS: 36415; 71046; 71046-26; 71275; 71275-26; 80053; 83880; 84484; 85025; 85379; 87804; 93005; 93010; 96365; 96375; 99283; 99285-25; A9270-GY; J2930; J3475; J7030; J7620-GY; Q9967

== ENCOUNTER 2020-11-17 01:15 | Emergency (ER) | payer BC ==
[2020-11-17] MEDS ORDERED: fentaNYL 50 MCG/ML SDV IVPUSH ONE ×2 (01:34→03:44)
[2020-11-17] MEDS ORDERED: Sodium Chloride 0.9% 2.5 ML Syringe FLUSH PRN (01:34)
[2020-11-17] MEDS ORDERED: Ondansetron 4 MG/2 ML SDV IVPUSH ONE ×2 (01:34→03:45)
[2020-11-17] MEDS ORDERED: Sodium Chloride 0.9% 10 ML Syringe FLUSH PRN (01:34)
[2020-11-17] MEDS ORDERED: Sodium Chloride 0.9% 1,000 ML IV ONE ×3 (01:37→05:36)
--- NOTE | 2020-11-17 01:39 | EDM.PDOC ---
ED HPI GENERAL MEDICAL PROBLEM - General Chief Complaint: Abdominal Pain Stated Complaint: ABDOMINAL PAIN RADIATING TO BACK Time Seen by Provider: 11/17/20 01:22 - History of Present Illness INITIAL COMMENTS - FREE TEXT/NARRATIVE: History of present illness: [] Patient started having pain in her right upper quadrant and epigastrium that radiated to her right flank yesterday. It got unbearable tonight. Associated with nausea and diaphoresis. The patient's never had this pain before even though she has had prior nephrolithiasis. Patient still has her gallbladder never had gallbladder trouble. The pain was worse when she ate but tonight it is constant. Review of systems: As per history of present illness and below otherwise all systems reviewed and negative. Past medical history: As per history of present illness and as reviewed below otherwise noncontributory. Surgical history: As per history of present illness and as reviewed below otherwise noncontributory. Social history: No reported history of drug or alcohol abuse. Family history: As per history of present illness and as reviewed below otherwise noncontributory. Physical exam: Constitutional - well developed, well-nourished and in no acute distress HEENT - normocephalic, no evidence of trauma - external nose and mouth normal - no mass in neck and no JVD - mucosae moist EYES - full EOM, PERRL, no icterus - no evidence of inflammation, injection, or drainage Respiratory - no respiratory distress, equal bilateral expansion, lungs clear to auscultation and no abnormal lung sounds Cardiovascular - Regular Rhythm with S1 and S2 appreciated and no murmur, gallop or rub. GI - abdomen soft without distension or organomegaly - normal bowel sounds - no guard or rebound. The patient has tenderness in the right upper quadrant and epigastrium. 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 no gross deformity of long bones or joints - no tenderness, swelling or edema Neurologic - Alert and oriented times four - CN II-XII grossly intact - motor sensory and coordination symmetrically normal Psychiatric - appropriate mood and affect with normal thought content Hematologic - No petechiae or purpura - mucosa appropriate color and sclera not pale - normal nail bed color and refill Integument - no rash or evidence of trauma - normal turgor Diagnostics: [] Therapeutics: [] Impression: [] Plan: [] Definitive disposition and diagnosis as appropriate pending reevaluation and review of above. upper abdominal Pain Score (Numeric/FACES): 9 - Related Data Allergies Allergy/AdvReac Type Severity Reaction Status Date / Time adhesive tape Allergy Hives Verified 11/17/20 01:26 doxycycline Allergy Rash Verified 11/17/20 01:26 morphine Allergy Rash Verified 11/17/20 01:26 oxycodone [Oxycodone] Allergy Rash Verified 11/17/20 01:26 Home Meds: Home Meds Levothyroxine Sodium [Synthroid] 1 tab PO DAILY 12/12/19 [History] Sertraline [Zoloft] 50 mg PO DAILY 06/14/20 [History] Ondansetron [Zofran ODT] 4 mg PO Q6H PRN #10 tab.dis 11/17/20 [Rx] Pantoprazole [ProTONIX] 40 mg PO DAILY #30 tab.cr 11/17/20 [Rx] Past Medical History HEENT History: Reports: Impaired Vision, Other (See Below) Other HEENT History: wears glasses/contacts Hx of fx nose Cardiovascular History: Reports: Hypertension Respiratory History: Reports: None Gastrointestinal History: Reports: None Genitourinary History: Reports: Renal Calculus PLEAT TAPER History: Reports: 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 History: Reports: Fracture Other 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 History: hx of bilateral legs, hand Neurological History: Reports: Concussion, Migraines Psychiatric History: Reports: Anxiety, Depression Endocrine/Metabolic History: Reports: Hypothyroidism, Obesity/BMI 30+ Other Endocrine/Metabolic History: hx of Hashimotos disease Hematologic History: Reports: Anemia, Iron Deficiency Immunologic History: Reports: None Oncologic (Cancer) History: Reports: None Dermatologic History: Reports: None - Infectious Disease History Infectious Disease History: Reports: Chicken Pox, Novel Coronavirus Other Infectious Disease History: COVID-19 - Past Surgical History Head Surgeries/Procedures: Reports: None HEENT Surgical History: Reports: Oral Surgery, Tonsillectomy Other HEENT Surgeries/Procedures: wisdom teeth Cardiovascular Surgical History: Reports: None Respiratory Surgical History: Reports: None GI Surgical History: Reports: Bariatric Procedure, Other (See Below) Other GI Surgeries/Procedures: removal of gastric lap band Female Surgical History: Reports: Breast Biopsy, Section, D&C, Other (See Below) Other Female Surgeries/Procedures: Laparoscopy Endocrine Surgical History: Reports: None Neurological Surgical History: Reports: None 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 Surgical History: Reports: Other (See Below) Other 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 Surgeries/Procedures:: Closed Reduction Fx Femur Oncologic Surgical History: Reports: None Dermatological Surgical History: Reports: None Social & Family History - Family History Family Medical History: No Pertinent Family History - Caffeine Use Caffeine Use: Reports: None - Recreational Drug Use Recreational Drug Use: No ED ROS GENERAL - Review of Systems Review Of Systems: Comprehensive ROS is negative, except as noted in HPI. ED EXAM, GENERAL - Physical Exam Exam: See Below Free Text/Narrative:: My physical exam is in the HPI #1 Interpretation EKG Interpretation Comments: EKG performed at 0200 hrs. sinus rhythm heart rate 79 CT interval 164. QT duration 431 Buna 44. There is a late transition R wave in the precordium otherwise QRS is normal. Compared to prior no change. Impression no acute injury or ischemia. Course - Vital Signs Text/Narrative:: Oh 2:50 AM lactic acid is 2.6. 800 mL of fluid will be added to the initial bolus to give her a total of 30/kg based on her ideal body weight of 60 kg. Lactate will be repeated and antibiotics will be given. Patient feels somewhat better after being dosed twice with narcotic pain medicine. Abdomen soft no guard or rebound. She has minimal tenderness epigastrium. CT showed ovarian cysts and a renal cyst but no explanation for her epigastric pain Last Recorded V/S: Last Vital Signs Temp 36.8 C 11/17/20 01:24 Pulse 84 11/17/20 07:00 Resp 18 11/17/20 07:00 BP 117/57 L 11/17/20 07:00 Pulse Ox 96 11/17/20 07:00 - Orders/Labs/Meds Orders: Active Orders 24 hr Category Date Time Status EKG Documentation Completion [RC] AM Care 11/17/20 01:34 Active CULTURE BLOOD [BC] Stat Lab 11/17/20 03:15 Received CULTURE BLOOD [BC] Stat Lab 11/17/20 03:25 Received Sodium Chloride 0.9% [Saline Flush] Med 11/17/20 01:34 Active 10 ml FLUSH ASDIRECTED PRN Sodium Chloride 0.9% [Saline Flush] Med 11/17/20 01:34 Active 2.5 ml FLUSH ASDIRECTED PRN Blood Culture x2 Reflex Set [OM.PC] Stat Oth 11/17/20 03:01 Ordered Saline Lock Insert [OM.PC] Stat Oth 11/17/20 01:34 Ordered Medication Orders Sodium Chloride (Sodium Chloride 0.9% 10 Ml Syringe) 10 ml FLUSH ASDIRECTED PRN PRN Reason: Keep Vein Open Last Admin: 11/17/20 01:56 Dose: 10 ml Documented by: JARETT Sodium Chloride (Sodium Chloride 0.9% 2.5 Ml Syringe) 2.5 ml FLUSH ASDIRECTED PRN PRN Reason: Keep Vein Open Last Admin: 11/17/20 01:56 Dose: 2.5 ml Documented by: JARETT Labs: Laboratory Tests 11/17/20 11/17/20 11/17/20 Range/Units 01:40 01:40 01:40 WBC 12.99 H (4.0-11.0) K/uL RBC 5.36 (4.30-5.90) M/uL Hgb 14.6 (12.0-16.0) g/dL Hct 45.1 (36.0-46.0) % MCV 84.1 (80.0-98.0) fL MCH 27.2 (27.0-32.0) pg MCHC 32.4 (31.0-37.0) g/dL RDW Std Deviation 45.6 (28.0-62.0) fl RDW Coeff of [place] 15 (11.0-15.0) % Plt Count 375 (150-400) K/uL MPV 9.20 (7.40-12.00) fL Neut % (Auto) 79.1 (48.0-80.0) % Lymph % (Auto) 16.2 (16.0-40.0) % Garden % (Auto) 4.2 (0.0-15.0) % Eos % (Auto) 0.4 (0.0-7.0) % Baso % (Auto) 0.1 (0.0-1.5) % Neut # (Auto) 10.3 H (1.4-5.7) K/uL Lymph # (Auto) 2.1 (0.6-2.4) K/uL Garden # (Auto) 0.5 (0.0-0.8) K/uL Eos # (Auto) 0.1 (0.0-0.7) K/uL Baso # (Auto) 0.0 (0.0-0.1) K/uL Nucleated RBC % 0.0 /100WBC Nucleated RBCs # 0 K/uL Sodium 139 (136-145) mmol/L Potassium 4.0 (3.5-5.1) mmol/L Chloride 103 (98-107) mmol/L Carbon Dioxide 23.8 (21.0-32.0) mmol/L BUN 17 (7.0-18.0) mg/dL Creatinine 1.1 H (0.6-1.0) mg/dL Est Cr Clr Drug Dosing 64.92 mL/min Estimated GFR (MDRD) 55.6 ml/min Glucose 117 H (74-106) mg/dL Lactic Acid (0.4-2.0) mmol/L Calcium 10.0 (8.5-10.1) mg/dL Total Bilirubin 0.5 (0.2-1.0) mg/dL AST 16 (15-37) IU/L ALT 23 (14-63) IU/L Alkaline Phosphatase 107 (46-116) U/L Troponin I < 0.050 (0.000-0.056) ng/mL Total Protein 7.7 (6.4-8.2) g/dL Albumin 3.6 (3.4-5.0) g/dL Globulin 4.1 H (2.6-4.0) g/dL Albumin/Globulin Ratio 0.9 (0.9-1.6) Lipase 91 (73-393) U/L TSH 3rd Generation 0.76 (0.36-3.74) uIU/mL HCG, Qual NEGATIVE (NEG) Urine Color Urine Appearance Urine pH (5.0-8.0) Ur Specific V[place] (1.001-1.035) Urine Protein (NEGATIVE) mg/dL Urine Glucose (UA) (NEGATIVE) mg/dL Urine Ketones (NEGATIVE) mg/dL Urine Occult Blood (NEGATIVE) Urine Nitrite (NEGATIVE) Urine Bilirubin (NEGATIVE) Urine Urobilinogen (<2.0) EU/dL Ur Leukocyte Esterase (NEGATIVE) Urine RBC (0-2/HPF) Urine WBC (0-5/HPF) Ur Epithelial Cells (NONE-FEW) Calcium Oxalate Crystal (NEGATIVE) Urine Bacteria (NEGATIVE) 11/17/20 11/17/20 11/17/20 Range/Units 01:50 04:50 05:05 WBC (4.0-11.0) K/uL RBC (4.30-5.90) M/uL Hgb (12.0-16.0) g/dL Hct (36.0-46.0) % MCV (80.0-98.0) fL MCH (27.0-32.0) pg MCHC (31.0-37.0) g/dL RDW Std Deviation (28.0-62.0) fl RDW Coeff of [place] (11.0-15.0) % Plt Count (150-400) K/uL MPV (7.40-12.00) fL Neut % (Auto) (48.0-80.0) % Lymph % (Auto) (16.0-40.0) % Garden % (Auto) (0.0-15.0) % Eos % (Auto) (0.0-7.0) % Baso % (Auto) (0.0-1.5) % Neut # (Auto) (1.4-5.7) K/uL Lymph # (Auto) (0.6-2.4) K/uL Garden # (Auto) (0.0-0.8) K/uL Eos # (Auto) (0.0-0.7) K/uL Baso # (Auto) (0.0-0.1) K/uL Nucleated RBC % /100WBC Nucleated RBCs # K/uL Sodium (136-145) mmol/L Potassium (3.5-5.1) mmol/L Chloride (98-107) mmol/L Carbon Dioxide (21.0-32.0) mmol/L BUN (7.0-18.0) mg/dL Creatinine (0.6-1.0) mg/dL Est Cr Clr Drug Dosing mL/min Estimated GFR (MDRD) ml/min Glucose (74-106) mg/dL Lactic Acid 2.6 H* 2.4 H* (0.4-2.0) mmol/L Calcium (8.5-10.1) mg/dL Total Bilirubin (0.2-1.0) mg/dL AST (15-37) IU/L ALT (14-63) IU/L Alkaline Phosphatase (46-116) U/L Troponin I (0.000-0.056) ng/mL Total Protein (6.4-8.2) g/dL Albumin (3.4-5.0) g/dL Globulin (2.6-4.0) g/dL Albumin/Globulin Ratio (0.9-1.6) Lipase (73-393) U/L TSH 3rd Generation (0.36-3.74) uIU/mL HCG, Qual (NEG) Urine Color YELLOW Urine Appearance CLEAR Urine pH 5.5 (5.0-8.0) Ur Specific [place] 1.020 (1.001-1.035) Urine Protein NEGATIVE (NEGATIVE) mg/dL Urine Glucose (UA) NEGATIVE (NEGATIVE) mg/dL Urine Ketones NEGATIVE (NEGATIVE) mg/dL Urine Occult Blood SMALL H (NEGATIVE) Urine Nitrite NEGATIVE (NEGATIVE) Urine Bilirubin NEGATIVE (NEGATIVE) Urine Urobilinogen 0.2 (<2.0) EU/dL Ur Leukocyte Esterase NEGATIVE (NEGATIVE) Urine RBC 0-2 (0-2/HPF) Urine WBC 0-3 (0-5/HPF) Ur Epithelial Cells FEW (NONE-FEW) Calcium Oxalate Crystal OCCASIONAL (NEGATIVE) Urine Bacteria FEW (NEGATIVE) 11/17/20 Range/Units 06:51 WBC (4.0-11.0) K/uL RBC (4.30-5.90) M/uL Hgb (12.0-16.0) g/dL Hct (36.0-46.0) % MCV (80.0-98.0) fL MCH (27.0-32.0) pg MCHC (31.0-37.0) g/dL RDW Std Deviation (28.0-62.0) fl RDW Coeff of [place] (11.0-15.0) % Plt Count (150-400) K/uL MPV (7.40-12.00) fL Neut % (Auto) (48.0-80.0) % Lymph % (Auto) (16.0-40.0) % Garden % (Auto) (0.0-15.0) % Eos % (Auto) (0.0-7.0) % Baso % (Auto) (0.0-1.5) % Neut # (Auto) (1.4-5.7) K/uL Lymph # (Auto) (0.6-2.4) K/uL Garden # (Auto) (0.0-0.8) K/uL Eos # (Auto) (0.0-0.7) K/uL Baso # (Auto) (0.0-0.1) K/uL Nucleated RBC % /100WBC Nucleated RBCs # K/uL Sodium (136-145) mmol/L Potassium (3.5-5.1) mmol/L Chloride (98-107) mmol/L Carbon Dioxide (21.0-32.0) mmol/L BUN (7.0-18.0) mg/dL Creatinine (0.6-1.0) mg/dL Est Cr Clr Drug Dosing mL/min Estimated GFR (MDRD) ml/min Glucose (74-106) mg/dL Lactic Acid 2.2 H* (0.4-2.0) mmol/L Calcium (8.5-10.1) mg/dL Total Bilirubin (0.2-1.0) mg/dL AST (15-37) IU/L ALT (14-63) IU/L Alkaline Phosphatase (46-116) U/L Troponin I (0.000-0.056) ng/mL Total Protein (6.4-8.2) g/dL Albumin (3.4-5.0) g/dL Globulin (2.6-4.0) g/dL Albumin/Globulin Ratio (0.9-1.6) Lipase (73-393) U/L TSH 3rd Generation (0.36-3.74) uIU/mL HCG, Qual (NEG) Urine Color Urine Appearance Urine pH (5.0-8.0) Ur Specific [place] (1.001-1.035) Urine Protein (NEGATIVE) mg/dL Urine Glucose (UA) (NEGATIVE) mg/dL Urine Ketones (NEGATIVE) mg/dL Urine Occult Blood (NEGATIVE) Urine Nitrite (NEGATIVE) Urine Bilirubin (NEGATIVE) Urine Urobilinogen (<2.0) EU/dL Ur Leukocyte Esterase (NEGATIVE) Urine RBC (0-2/HPF) Urine WBC (0-5/HPF) Ur Epithelial Cells (NONE-FEW) Calcium Oxalate Crystal (NEGATIVE) Urine Bacteria (NEGATIVE) Meds: Medications Generic Name Dose Route Start Last Admin Trade Name Freq PRN Reason Stop Dose Admin Sodium Chloride 10 ml 11/17/20 01:34 11/17/20 01:56 Sodium Chloride 0.9% 10 Ml Syringe FLUSH 10 ml ASDIRECTED PRN Administration Keep Vein Open Sodium Chloride 2.5 ml 11/17/20 01:34 11/17/20 01:56 Sodium Chloride 0.9% 2.5 Ml Syringe FLUSH 2.5 ml ASDIRECTED PRN Administration Keep Vein Open Discontinued Medications Generic Name Dose Route Start Last Admin Trade Name Freq PRN Reason Stop Dose Admin Al Hydroxide/Mg Hydroxide 15 0 ml 11/17/20 04:35 11/17/20 04:41 ml/ Lidocaine HCl 5 ml PO 11/17/20 04:36 20 each ONETIME ONE Administration Diphenhydramine HCl 25 mg 11/17/20 05:43 11/17/20 05:49 Diphenhydramine 50 Mg/Ml Sdv IVPUSH 11/17/20 05:44 25 mg ONETIME ONE Administration Fentanyl 50 mcg 11/17/20 01:34 11/17/20 01:55 Fentanyl 50 Mcg/Ml Sdv IVPUSH 11/17/20 01:35 50 mcg ONETIME ONE Administration Fentanyl 50 mcg 11/17/20 03:44 11/17/20 03:59 Fentanyl 50 Mcg/Ml Sdv IVPUSH 11/17/20 03:45 50 mcg ONETIME ONE Administration Sodium Chloride 1,000 mls @ 500 mls/hr 11/17/20 01:37 11/17/20 01:55 Normal Saline IV 11/17/20 03:36 500 mls/hr .Bolus ONE Administration Pantoprazole Sodium 40 mg/ 10 mls @ 300 mls/hr 11/17/20 02:01 11/17/20 02:28 Sodium Chloride IV 11/17/20 02:02 300 mls/hr NOW ONE Administration Sodium Chloride 1,000 mls @ 1,000 mls/hr 11/17/20 02:58 11/17/20 03:15 Normal Saline IV 11/17/20 03:57 1,000 mls/hr .Bolus ONE Administration Piperacillin Sod/Tazobactam 100 mls @ 100 mls/hr 11/17/20 02:59 11/17/20 03:28 Sod 4.5 gm/ Sodium Chloride IV 11/17/20 03:58 100 mls/hr ONETIME ONE Administration Sodium Chloride 1,000 mls @ 1,000 mls/hr 11/17/20 05:36 11/17/20 05:43 Normal Saline IV 11/17/20 06:35 1,000 mls/hr .Bolus ONE Administration Iopamidol 100 ml 11/17/20 03:10 11/17/20 03:11 Iopamidol 755 Mg/Ml 500 Ml Multipack Bottle IVPUSH 11/17/20 03:11 100 ml ONETIME STA Administration Metoclopramide HCl 10 mg 11/17/20 05:43 11/17/20 05:48 Metoclopramide 10 Mg/2 Ml Sdv IVPUSH 11/17/20 05:44 10 mg ONETIME ONE Administration Ondansetron HCl 4 mg 11/17/20 01:34 11/17/20 01:55 Ondansetron 4 Mg/2 Ml Sdv IVPUSH 11/17/20 01:35 4 mg ONETIME ONE Administration Ondansetron HCl 4 mg 11/17/20 03:45 11/17/20 03:59 Ondansetron 4 Mg/2 Ml Sdv IVPUSH 11/17/20 03:46 4 mg ONETIME ONE Administration Departure - Departure Time of Disposition: 07:45 Disposition: Home, Self-Care 01 Condition: Good Clinical Impression: Abdominal pain Gastritis Qualifiers: Gastritis type: unspecified gastritis - Discharge Information Prescriptions: Pantoprazole [ProTONIX] 40 mg PO DAILY #30 tab.cr Ondansetron [Zofran ODT] 4 mg PO Q6H PRN #10 tab.dis PRN Reason: Nausea Instructions: Gastritis, Adult, [id number], Abdominal Pain, Adult Referrals: Tao Godinez MD [Primary Care Provider] - Forms: ED Department Discharge Additional Instructions: [facility] - Primary Care [address] [place] [id number] [id number] The following information is given to patients seen in the emergency department who are being discharged to home. This information is to outline your options for follow-up care. We provide all patients seen in our emergency department with a follow-up referral. The need for follow-up, as well as the timing and circumstances, are variable depending upon the specifics of your emergency department visit. If you don't have a primary care physician on staff, we will provide you with a referral. We always advise you to contact your personal physician following an emergency department visit to inform them of the circumstance of the visit and for follow-up with them and/or the need for any referrals to a consulting specialist. The emergency department will also refer you to a specialist when appropriate. This referral assures that you have the opportunity for follow-up care with a specialist. All of these measure are taken in an effort to provide you with optimal care, which includes your follow-up. Under all circumstances we always encourage you to contact your private physician who remains a resource for coordinating your care. When calling for follow-up care, please make the office aware that this follow-up is from your recent emergency room visit. If for any reason you are refused follow-up, please contact the [facility] Emergency Department at and asked to speak to the emergency department charge nurse. Sepsis Event Note (ED) - Evaluation Sepsis Screening Result: No Definite Risk - Focused Exam Vital Signs: Vital Signs Temp Pulse Resp BP Pulse Ox 11/17/20 07:00 84 18 117/57 L 96 11/17/20 06:15 89 17 138/67 97 11/17/20 05:04 84 18 134/76 96 11/17/20 01:24 36.8 C 121 H 16 192/140 H 94 L - My Orders Last 24 Hours: My Active Orders 11/17/20 01:34 EKG Documentation Completion [RC] AM Sodium Chloride 0.9% [Saline Flush] 10 ml FLUSH ASDIRECTED PRN Sodium Chloride 0.9% [Saline Flush] 2.5 ml FLUSH ASDIRECTED PRN Saline Lock Insert [OM.PC] Stat 11/17/20 03:01 Blood Culture x2 Reflex Set [OM.PC] Stat 11/17/20 03:15 CULTURE BLOOD [BC] Stat 11/17/20 03:25 CULTURE BLOOD [BC] Stat - Assessment/Plan Last 24 Hours: My Active Orders 11/17/20 01:34 EKG Documentation Completion [RC] AM Sodium Chloride 0.9% [Saline Flush] 10 ml FLUSH ASDIRECTED PRN Sodium Chloride 0.9% [Saline Flush] 2.5 ml FLUSH ASDIRECTED PRN Saline Lock Insert [OM.PC] Stat 11/17/20 03:01 Blood Culture x2 Reflex Set [OM.PC] Stat 11/17/20 03:15 CULTURE BLOOD [BC] Stat 11/17/20 03:25 CULTURE BLOOD [BC] Stat
[2020-11-17] MEDS ORDERED: Pantoprazole 40 MG in Sodium Chloride 0.9% 10 ML IV ONE (02:01)
[2020-11-17 02:14] LABS: BLOOD UREA NITROGEN,BUN 17 mg/dL (7.0-18.0); CARBON DIOXIDE,CO2 23.8 mmol/L (21.0-32.0); CHLORIDE,CL 103 mmol/L (98-107); GLUCOSE RANDOM 117 mg/dL (74-106); LIPASE 91 U/L (73-393); SODIUM,NA 139 mmol/L (136-145)
--- NOTE | 2020-11-17 02:14 | CR ---
For Patients: As a result of the Cures Act, medical imaging exams and procedure reports are released immediately into your electronic medical record. You may view this report before your referring provider. If you have questions, please contact your health care provider. HISTORY: Gastric pain and diaphoresis. COMPARISON: 06/14/2020 FINDINGS: A portable erect AP view of the chest was obtained at 0149 hours. The lungs remain clear. No focal or diffuse infiltrates are present. The heart remains normal in size. The mediastinum is normal in appearance. The osseous structures are normal in appearance for the patient`s age. IMPRESSION: Normal portable chest single view. Dictated by Juanjose Varela MD @ 11/17/2020 2:12:[address] Juanjose Varela @ Nov 17 2020 2:12AM
[2020-11-17] MEDS ORDERED: Piperacillin/Tazobactam 4.5 GM in Sodium Chloride 0.9% 100 ML IV ONE (02:59)
[2020-11-17] MEDS ORDERED: Iopamidol 755 MG/ML 500 ML Multipack Bottle IVPUSH STA (03:10)
--- NOTE | 2020-11-17 04:26 | CT ---
For Patients: As a result of the Century Cures Act, medical imaging exams and procedure reports are released immediately into your electronic medical record. You may view this report before your referring provider. If you have questions, please contact your health care provider. INDICATION: Gastric pain radiating to the right flank. COMPARISON: CT of the abdomen and pelvis from 11/02/2019 TECHNIQUE: CT examination of the abdomen and pelvis was performed with the uneventful intravenous administration of 100 cc of Isovue 370 while 2.5 mm thick axial sections were obtained from the lung bases through the pubic symphysis. Oral contrast was not administered. Please note that all CT scans at this facility use dose modulation, iterative reconstruction, and/or weight-based dosing when appropriate to reduce radiation dose to as low as reasonably achievable. FINDINGS: In the abdomen, the liver, spleen, pancreas, and adrenals are normal in appearance. There is a 1.3 centimeter cortical cyst in the posterior interpolar left kidney, not evident on the previous noncontrast CT. The kidneys are otherwise normal in appearance. The gallbladder is normal in appearance. The abdominal aorta is normal in caliber with no sign of dilatation. There is no sign of retroperitoneal mass or adenopathy. The stomach, loops of small bowel, and colon in the abdomen are normal in appearance. In the pelvis, the appendix is normal in appearance with no sign of inflammatory process. The loops of small bowel and colon in the pelvis are normal in appearance. The right ovary has a new cyst measuring 5.8 x 4.6 centimeters. The left ovary has a new cyst measuring 3.8 x 2.7 centimeters. The uterus is normal in appearance. The urinary bladder is normal in appearance. There is no sign of pelvic or inguinal mass or adenopathy. There is no sign of free air or free fluid in the abdomen or pelvis. The lung bases are clear. The osseous structures are normal in appearance for the patient`s age. IMPRESSION: CT of the abdomen shows nothing to explain the patient`s gastric pain radiating into the right flank. Normal appearance of the stomach, right urinary system, and gallbladder. Normal appearance of the pancreas. 1.3 centimeter cyst in the left kidney of no clinical concern. CT of the pelvis shows new bilateral ovarian cysts, the cyst on the right measuring up to 5.8 centimeters in diameter and the cyst on the left measuring up to 3.8 centimeters in diameter. Please note that all CT scans at this facility use dose modulation, iterative reconstruction, and/or weight-based dosing when appropriate to reduce radiation dose to as low as reasonably achievable. Dictated by Juanjose Varela MD @ 11/17/2020 4:25:[address] Juanjose Varela @ Nov 17 2020 4:25AM
[2020-11-17] MEDS ORDERED: Alum Hydrox/Mag Hydrox/Simeth 15 ML, Lidocaine 2% 5 ML PO ONE ×2 (04:35)
[2020-11-17] MEDS ORDERED: diphenhydrAMINE 50 MG/ML SDV IVPUSH ONE (05:43)
[2020-11-17] MEDS ORDERED: Metoclopramide 10 MG/2 ML SDV IVPUSH ONE (05:43)
[2020-11-17 08:07] VITALS: BP 140/76; PULSE 79
== END 2020-11-17 08:08 | disposition home or self-care (01) ==
LOC: MW.ED 01:15
DX: K29.70 Gastritis, unspecified, without bleeding (principal); I10 Essential (primary) hypertension; E03.9 Hypothyroidism, unspecified; E66.9 Obesity, unspecified; Z68.42 Body mass index [BMI] 45.0-49.9, adult; Z91.048 Other nonmedicinal substance allergy status; Z88.1 Allergy status to other antibiotic agents; Z88.5 Allergy status to narcotic agent; Z79.899 Other long term (current) drug therapy
CPT/HCPCS: 36415; 71045; 74177; 80053; 81001; 83605; 83690; 84443; 84484; 84703; 85025; 87040; 87186; 93005; 96365; 96375; 96376; 99284; A9270; C9113; J1200; J2405; J2543; J2765; J3010; J7030; Q9967; 87077; 93010; 99283

== ENCOUNTER 2020-11-18 20:00 | Emergency (ER) | payer BC ==
[2020-11-18] MEDS ORDERED: Sodium Chloride 0.9% 10 ML Syringe FLUSH PRN (20:03)
[2020-11-18] MEDS ORDERED: Sodium Chloride 0.9% 2.5 ML Syringe FLUSH PRN (20:03)
[2020-11-18] MEDS ORDERED: Piperacillin/Tazobactam 4.5 GM in Sodium Chloride 0.9% 100 ML IV ONE (20:03)
[2020-11-18] MEDS ORDERED: Sodium Chloride 0.9% 10 ML SDV IV STA (20:07)
[2020-11-18] MEDS ORDERED: Sodium Chloride 0.9% 1,000 ML IV ONE (20:07)
--- NOTE | 2020-11-18 20:19 | EDM.PDOC ---
ED HPI GENERAL MEDICAL PROBLEM - General Stated Complaint: BLOOD CULTURES Time Seen by Provider: 11/18/20 20:20 - History of Present Illness INITIAL COMMENTS - FREE TEXT/NARRATIVE: History of present illness: [] Patient complains of 2 days of headache. She has swelling about her eyes with redness and irritation today. She does not have any trouble moving her neck. She felt weak and sick and had a headache yesterday. I saw her and she had an elevated lactate but no other obvious cause for it. I hydrated her and her lactate did not come down to normal range. We hydrated her again she felt better her lactate was 2.2 on discharge. Today her blood culture is growing bacteria. Initial report is that she has a gram-positive cocci in cluster. The patient felt bad when I called her back and she came in to be seen. She says she feels a little better than yesterday before hydration but still feels like she has a headache feels a little fatigued and has redness and swelling around her eyes. Review of systems: As per history of present illness and below otherwise all systems reviewed and negative. Past medical history: As per history of present illness and as reviewed below otherwise noncontributory. Surgical history: As per history of present illness and as reviewed below otherwise noncontributory. Social history: No reported history of drug or alcohol abuse. Family history: As per history of present illness and as reviewed below otherwise noncontributory. Physical exam: Constitutional - well developed, well-nourished and in no acute distress HEENT - normocephalic, no evidence of trauma - external nose and mouth normal - no mass in neck and no JVD - mucosae moist EYES - full EOM, PERRL, no icterus - no evidence of inflammation, injection, or drainage Respiratory - no respiratory distress, equal bilateral expansion, lungs clear to auscultation and no abnormal lung sounds Cardiovascular - Regular Rhythm with S1 and S2 appreciated and no murmur, gallop or rub. GI - abdomen soft without distension or organomegaly - normal bowel sounds - no guard or rebound 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 no gross deformity of long bones or joints - no tenderness, swelling or edema Neurologic - Alert and oriented times four - CN II-XII grossly intact - motor sensory and coordination symmetrically normal Psychiatric - appropriate mood and affect with normal thought content Hematologic - No petechiae or purpura - mucosa appropriate color and sclera not pale - normal nail bed color and refill Integument - no rash or evidence of trauma - normal turgor Diagnostics: [] Therapeutics: [] Impression: [] Plan: [] Definitive disposition and diagnosis as appropriate pending reevaluation and review of above. headache Pain Score (Numeric/FACES): 5 - Related Data Allergies Allergy/AdvReac Type Severity Reaction Status Date / Time adhesive tape Allergy Hives Verified 11/18/20 20:11 doxycycline Allergy Rash Verified 11/18/20 20:11 morphine Allergy Rash Verified 11/18/20 20:11 oxycodone [Oxycodone] Allergy Rash Verified 11/18/20 20:11 Home Meds: Home Meds Levothyroxine Sodium [Synthroid] 1 tab PO DAILY 12/12/19 [History] Sertraline [Zoloft] 50 mg PO DAILY 06/14/20 [History] Ondansetron [Zofran ODT] 4 mg PO Q6H PRN #10 tab.dis 11/17/20 [Rx] Pantoprazole [ProTONIX] 40 mg PO DAILY #30 tab.cr 11/17/20 [Rx] Past Medical History HEENT History: Reports: Impaired Vision, Other (See Below) Other HEENT History: wears glasses/contacts Hx of fx nose Cardiovascular History: Reports: Hypertension Respiratory History: Reports: None Gastrointestinal History: Reports: None Genitourinary History: Reports: Renal Calculus [employer] History: Reports: 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 History: Reports: Fracture Other 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 History: hx of bilateral legs, hand Neurological History: Reports: Concussion, Migraines Psychiatric History: Reports: Anxiety, Depression Endocrine/Metabolic History: Reports: Hypothyroidism, Obesity/BMI 30+ Other Endocrine/Metabolic History: hx of Hashimotos disease Hematologic History: Reports: Anemia, Iron Deficiency Immunologic History: Reports: None Oncologic (Cancer) History: Reports: None Dermatologic History: Reports: None - Infectious Disease History Infectious Disease History: Reports: Chicken Pox, Novel Coronavirus Other Infectious Disease History: COVID-19 - Past Surgical History Head Surgeries/Procedures: Reports: None HEENT Surgical History: Reports: Oral Surgery, Tonsillectomy Other HEENT Surgeries/Procedures: wisdom teeth Cardiovascular Surgical History: Reports: None Respiratory Surgical History: Reports: None GI Surgical History: Reports: Bariatric Procedure, Other (See Below) Other GI Surgeries/Procedures: removal of gastric lap band Female Surgical History: Reports: Breast Biopsy, Section, D&C, Other (See Below) Other Female Surgeries/Procedures: Laparoscopy Endocrine Surgical History: Reports: None Neurological Surgical History: Reports: None 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 Surgical History: Reports: Other (See Below) Other 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 Surgeries/Procedures:: Closed Reduction Fx Femur Oncologic Surgical History: Reports: None Dermatological Surgical History: Reports: None Social & Family History - Family History Family Medical History: No Pertinent Family History - Caffeine Use Caffeine Use: Reports: None ED ROS GENERAL - Review of Systems Review Of Systems: Comprehensive ROS is negative, except as noted in HPI. ED EXAM, GENERAL - Physical Exam Exam: See Below Free Text/Narrative:: Physical exam is in the HPI. #1 Interpretation EKG Interpretation Comments: KG done at 2026 hrs. sinus rhythm heart rate 98 ID interval 198. QT duration 441 [place] XX 3. Late transition R wave in the precordium normal ST and T. Compared to prior most recent available in the record no change except for rate. Impression no acute injury or arrhythmia. Course - Vital Signs Text/Narrative:: The patient was called a sepsis alert. Fluids will be given based on an ideal body weight calculated to be 60 Kg 2042 hrs. after 2 attempts at vascular access I used the SonoSite and put a 18- gauge intravenous catheter in her left antecubital fossa and the cephalic vein with no complications other than she felt some tingling in her forearm during the insertion. 2127 patient has a headache and want something for pain. She has allergy to morphine codeine and oxycodone. She can take hydrocodone fentanyl and no Dilaudid. 11:21 PM it appears this patient has a normal lactate and normal white count and is feeling somewhat better. She has a headache and her symptoms are likely viral with a blood culture that is likely a contaminant. Patient will be discharged for close follow-up. Last Recorded V/S: Last Vital Signs Temp 36.8 C 11/18/20 20:08 Pulse 112 H 11/18/20 20:08 Resp 18 11/18/20 20:08 BP 146/78 H 11/18/20 20:08 Pulse Ox 96 11/18/20 20:08 - Orders/Labs/Meds Orders: Active Orders 24 hr Category Date Time Status EKG Documentation Completion [RC] AM Care 11/18/20 20:03 Active CULTURE BLOOD [BC] Stat Lab 11/18/20 20:15 Received CULTURE BLOOD [BC] Stat Lab 11/18/20 20:20 Received Sodium Chloride 0.9% [Saline Flush] Med 11/18/20 20:03 Active 10 ml FLUSH ASDIRECTED PRN Sodium Chloride 0.9% [Saline Flush] Med 11/18/20 20:03 Active 2.5 ml FLUSH ASDIRECTED PRN Blood Culture x2 Reflex Set [OM.PC] Stat Oth 11/18/20 20:04 Ordered Saline Lock Insert [OM.PC] Stat Oth 11/18/20 20:03 Ordered Medication Orders Sodium Chloride (Sodium Chloride 0.9% 10 Ml Syringe) 10 ml FLUSH ASDIRECTED PRN PRN Reason: Keep Vein Open Sodium Chloride (Sodium Chloride 0.9% 2.5 Ml Syringe) 2.5 ml FLUSH ASDIRECTED PRN PRN Reason: Keep Vein Open Labs: Laboratory Tests 11/18/20 11/18/20 11/18/20 Range/Units 20:20 20:20 20:20 WBC 7.22 (4.0-11.0) K/uL RBC 4.37 (4.30-5.90) M/uL Hgb 12.0 (12.0-16.0) g/dL Hct 37.1 (36.0-46.0) % MCV 84.9 (80.0-98.0) fL MCH 27.5 (27.0-32.0) pg MCHC 32.3 (31.0-37.0) g/dL RDW Std Deviation 46.3 (28.0-62.0) fl RDW Coeff of [place] 15 (11.0-15.0) % Plt Count 305 (150-400) K/uL MPV 9.10 (7.40-12.00) fL Neut % (Auto) 66.2 (48.0-80.0) % Lymph % (Auto) 25.9 (16.0-40.0) % [place] % (Auto) 5.4 (0.0-15.0) % Eos % (Auto) 2.4 (0.0-7.0) % Baso % (Auto) 0.1 (0.0-1.5) % Neut # (Auto) 4.8 (1.4-5.7) K/uL Lymph # (Auto) 1.9 (0.6-2.4) K/uL [place] # (Auto) 0.4 (0.0-0.8) K/uL Eos # (Auto) 0.2 (0.0-0.7) K/uL Baso # (Auto) 0.0 (0.0-0.1) K/uL Nucleated RBC % 0.0 /100WBC Nucleated RBCs # 0 K/uL Sodium 144 (136-145) mmol/L Potassium 4.1 (3.5-5.1) mmol/L Chloride 108 H (98-107) mmol/L Carbon Dioxide 26.6 (21.0-32.0) mmol/L BUN 9 (7.0-18.0) mg/dL Creatinine 0.8 (0.6-1.0) mg/dL Est Cr Clr Drug Dosing 89.26 mL/min Estimated GFR (MDRD) > 60.0 ml/min Glucose 97 (74-106) mg/dL Lactic Acid 1.9 (0.4-2.0) mmol/L Calcium 7.9 L (8.5-10.1) mg/dL Total Bilirubin 0.2 (0.2-1.0) mg/dL AST 25 (15-37) IU/L ALT 27 (14-63) IU/L Alkaline Phosphatase 98 (46-116) U/L Troponin I < 0.050 (0.000-0.056) ng/mL Total Protein 6.7 (6.4-8.2) g/dL Albumin 2.9 L (3.4-5.0) g/dL Globulin 3.8 (2.6-4.0) g/dL Albumin/Globulin Ratio 0.8 L (0.9-1.6) Urine Color Urine Appearance Urine pH (5.0-8.0) Ur Specific [place] (1.001-1.035) Urine Protein (NEGATIVE) mg/dL Urine Glucose (UA) (NEGATIVE) mg/dL Urine Ketones (NEGATIVE) mg/dL Urine Occult Blood (NEGATIVE) Urine Nitrite (NEGATIVE) Urine Bilirubin (NEGATIVE) Urine Urobilinogen (<2.0) EU/dL Ur Leukocyte Esterase (NEGATIVE) Urine RBC (0-2/HPF) Urine WBC (0-5/HPF) Ur Epithelial Cells (NONE-FEW) Urine Bacteria (NEGATIVE) 11/18/20 Range/Units 22:55 WBC (4.0-11.0) K/uL RBC (4.30-5.90) M/uL Hgb (12.0-16.0) g/dL Hct (36.0-46.0) % MCV (80.0-98.0) fL MCH (27.0-32.0) pg MCHC (31.0-37.0) g/dL RDW Std Deviation (28.0-62.0) fl RDW Coeff of [place] (11.0-15.0) % Plt Count (150-400) K/uL MPV (7.40-12.00) fL Neut % (Auto) (48.0-80.0) % Lymph % (Auto) (16.0-40.0) % [place] % (Auto) (0.0-15.0) % Eos % (Auto) (0.0-7.0) % Baso % (Auto) (0.0-1.5) % Neut # (Auto) (1.4-5.7) K/uL Lymph # (Auto) (0.6-2.4) K/uL [place] # (Auto) (0.0-0.8) K/uL Eos # (Auto) (0.0-0.7) K/uL Baso # (Auto) (0.0-0.1) K/uL Nucleated RBC % /100WBC Nucleated RBCs # K/uL Sodium (136-145) mmol/L Potassium (3.5-5.1) mmol/L Chloride (98-107) mmol/L Carbon Dioxide (21.0-32.0) mmol/L BUN (7.0-18.0) mg/dL Creatinine (0.6-1.0) mg/dL Est Cr Clr Drug Dosing mL/min Estimated GFR (MDRD) ml/min Glucose (74-106) mg/dL Lactic Acid (0.4-2.0) mmol/L Calcium (8.5-10.1) mg/dL Total Bilirubin (0.2-1.0) mg/dL AST (15-37) IU/L ALT (14-63) IU/L Alkaline Phosphatase (46-116) U/L Troponin I (0.000-0.056) ng/mL Total Protein (6.4-8.2) g/dL Albumin (3.4-5.0) g/dL Globulin (2.6-4.0) g/dL Albumin/Globulin Ratio (0.9-1.6) Urine Color YELLOW Urine Appearance SLT CLOUDY Urine pH 5.5 (5.0-8.0) Ur Specific [place] 1.025 (1.001-1.035) Urine Protein NEGATIVE (NEGATIVE) mg/dL Urine Glucose (UA) NEGATIVE (NEGATIVE) mg/dL Urine Ketones NEGATIVE (NEGATIVE) mg/dL Urine Occult Blood MODERATE H (NEGATIVE) Urine Nitrite NEGATIVE (NEGATIVE) Urine Bilirubin NEGATIVE (NEGATIVE) Urine Urobilinogen 0.2 (<2.0) EU/dL Ur Leukocyte Esterase NEGATIVE (NEGATIVE) Urine RBC 0-3 (0-2/HPF) Urine WBC 0-1 (0-5/HPF) Ur Epithelial Cells FEW (NONE-FEW) Urine Bacteria FEW (NEGATIVE) Meds: Medications Generic Name Dose Route Start Last Admin Trade Name Freq PRN Reason Stop Dose Admin Sodium Chloride 10 ml 11/18/20 20:03 Sodium Chloride 0.9% 10 Ml Syringe FLUSH ASDIRECTED PRN Keep Vein Open Sodium Chloride 2.5 ml 11/18/20 20:03 Sodium Chloride 0.9% 2.5 Ml Syringe FLUSH ASDIRECTED PRN Keep Vein Open Discontinued Medications Generic Name Dose Route Start Last Admin Trade Name Freq PRN Reason Stop Dose Admin Hydrocodone Bitart/Acetaminophen 1 tab 11/18/20 22:45 11/18/20 22:51 Acetaminophen/Hydrocodone 325-10 Mg Tab PO 11/18/20 22:46 1 tab ONETIME ONE Administration Hydromorphone HCl 1 mg 11/18/20 21:28 11/18/20 21:43 Hydromorphone 1 Mg/Ml Syringe IVPUSH 11/18/20 21:29 1 mg ONETIME ONE Administration Piperacillin Sod/Tazobactam 100 mls @ 100 mls/hr 11/18/20 20:03 11/18/20 20:50 Sod 4.5 gm/ Sodium Chloride IV 11/18/20 21:02 100 mls/hr ONETIME ONE Administration Sodium Chloride 1,000 mls @ 1,000 mls/hr 11/18/20 20:07 11/18/20 20:49 Normal Saline IV 11/18/20 21:06 1,000 mls/hr .Bolus ONE Administration Sodium Chloride 1,000 mls @ 999 mls/hr 11/18/20 20:33 11/18/20 20:50 Normal Saline IV 11/18/20 21:33 999 mls/hr NOW STA Administration Ondansetron HCl 4 mg 11/18/20 22:03 11/18/20 22:33 Ondansetron 4 Mg/2 Ml Sdv IVPUSH 11/18/20 22:04 4 mg ONETIME ONE Administration Ondansetron HCl 4 mg 11/18/20 22:05 11/18/20 22:25 Ondansetron 4 Mg/2 Ml Sdv IVPUSH 11/18/20 22:06 Not Given ONETIME ONE Sodium Chloride 800 ml 11/18/20 20:07 11/18/20 20:33 Sodium Chloride 0.9% 10 Ml Sdv IV 11/18/20 20:08 Not Given STAT STA Departure - Departure Time of Disposition: 23:25 Disposition: Home, Self-Care 01 Condition: Good Clinical Impression: Viral syndrome, Gram-positive cocci in clusters Headache Qualifiers: Headache type: unspecified - Discharge Information Instructions: General Headache Without Cause, [id number], Viral Illness, Adult Referrals: Tao Godinez MD [Primary Care Provider] - Additional Instructions: 1 blood sample showed possible bacteria and that is why we call you back. Your labs are more normal now. Your headaches likely viral in origin. Return if worse. Stay well-hydrated. Ibuprofen naproxen or Tylenol for pain. [facility] - Primary Care [address] [place] [phone] [id number] The following information is given to patients seen in the emergency department who are being discharged to home. This information is to outline your options for follow-up care. We provide all patients seen in our emergency department with a follow-up referral. The need for follow-up, as well as the timing and circumstances, are variable depending upon the specifics of your emergency department visit. If you don't have a primary care physician on staff, we will provide you with a referral. We always advise you to contact your personal physician following an emergency department visit to inform them of the circumstance of the visit and for follow-up with them and/or the need for any referrals to a consulting specialist. The emergency department will also refer you to a specialist when appropriate. This referral assures that you have the opportunity for follow-up care with a specialist. All of these measure are taken in an effort to provide you with optimal care, which includes your follow-up. Under all circumstances we always encourage you to contact your private physician who remains a resource for coordinating your care. When calling for follow-up care, please make the office aware that this follow-up is from your recent emergency room visit. If for any reason you are refused follow-up, please contact the [facility] Emergency Department at and asked to speak to the emergency department charge nurse. Sepsis Event Note (ED) - Focused Exam Vital Signs: Vital Signs Temp Pulse Resp BP Pulse Ox 11/18/20 20:08 36.8 C 112 H 18 146/78 H 96 - My Orders Last 24 Hours: My Active Orders 11/18/20 20:03 EKG Documentation Completion [RC] AM Sodium Chloride 0.9% [Saline Flush] 10 ml FLUSH ASDIRECTED PRN Sodium Chloride 0.9% [Saline Flush] 2.5 ml FLUSH ASDIRECTED PRN Saline Lock Insert [OM.PC] Stat 11/18/20 20:04 Blood Culture x2 Reflex Set [OM.PC] Stat 11/18/20 20:15 CULTURE BLOOD [BC] Stat 11/18/20 20:20 CULTURE BLOOD [BC] Stat - Assessment/Plan Last 24 Hours: My Active Orders 11/18/20 20:03 EKG Documentation Completion [RC] AM Sodium Chloride 0.9% [Saline Flush] 10 ml FLUSH ASDIRECTED PRN Sodium Chloride 0.9% [Saline Flush] 2.5 ml FLUSH ASDIRECTED PRN Saline Lock Insert [OM.PC] Stat 11/18/20 20:04 Blood Culture x2 Reflex Set [OM.PC] Stat 11/18/20 20:15 CULTURE BLOOD [BC] Stat 11/18/20 20:20 CULTURE BLOOD [BC] Stat
[2020-11-18] MEDS ORDERED: Sodium Chloride 0.9% 1,000 ML IV STA (20:33)
[2020-11-18 21:11] LABS: BLOOD UREA NITROGEN,BUN 9 mg/dL (7.0-18.0); CARBON DIOXIDE,CO2 26.6 mmol/L (21.0-32.0); CHLORIDE,CL 108 mmol/L (98-107); GLUCOSE RANDOM 97 mg/dL (74-106); POTASSIUM,K 4.1 mmol/L (3.5-5.1); SODIUM,NA 144 mmol/L (136-145)
[2020-11-18] MEDS ORDERED: HYDROmorphone 1 MG/ML Syringe IVPUSH ONE (21:28)
--- NOTE | 2020-11-18 21:48 | CR ---
For Patients: As a result of the Cures Act, medical imaging exams and procedure reports are released immediately into your electronic medical record. You may view this report before your referring provider. If you have questions, please contact your health care provider. HISTORY: Sepsis. TECHNIQUE: Portable frontal view the chest. COMPARISON: Chest x-ray 11/17/2020. FINDINGS: No airspace consolidation. No pleural effusion or pneumothorax. Pulmonary vasculature and cardiomediastinal silhouette are within normal limits. IMPRESSION: No change. No cardiopulmonary abnormality. Dictated by John Mcdonough MD @ 11/18/2020 9:46:[address] John Mcdonough @ Nov 18 2020 9:46PM
[2020-11-18] MEDS ORDERED: Ondansetron 4 MG/2 ML SDV IVPUSH ONE ×2 (22:03→22:05)
[2020-11-18] MEDS ORDERED: Acetaminophen/HYDROcodone 325-10 MG Tab PO ONE (22:45)
[2020-11-18] MEDS ORDERED: LORazepam 2 MG/ML SDV IVPUSH ONE (23:29)
[2020-11-18 23:47] VITALS: BP 130/76; PULSE 89
== END 2020-11-18 23:42 | disposition home or self-care (01) ==
LOC: MW.ED 20:00
DX: B34.9 Viral infection, unspecified (principal); B96.89 Other specified bacterial agents as the cause of diseases classified elsewhere; E03.9 Hypothyroidism, unspecified; I10 Essential (primary) hypertension; E66.9 Obesity, unspecified; Z68.30 Body mass index [BMI] 30.0-30.9, adult; Z88.5 Allergy status to narcotic agent; Z91.048 Other nonmedicinal substance allergy status; Z88.1 Allergy status to other antibiotic agents; Z79.899 Other long term (current) drug therapy
CPT/HCPCS: 36415; 71045; 80053; 81001; 83605; 84484; 85025; 87040; 93005; 96365; 96375; 99284; A9270; J1170; J2060; J2405; J2543; J7030; 93010

== ENCOUNTER 2021-01-14 08:28 | Emergency (ER) | payer BC ==
[2021-01-14] MEDS ORDERED: Sodium Chloride 0.9% 1,000 ML IV ONE ×2 (09:12→10:09)
[2021-01-14] MEDS ORDERED: Sodium Chloride 0.9% 10 ML Syringe FLUSH PRN (09:12)
[2021-01-14] MEDS ORDERED: Sodium Chloride 0.9% 2.5 ML Syringe FLUSH PRN (09:12)
[2021-01-14] MEDS ORDERED: Ondansetron 4 MG/2 ML SDV IVPUSH ONE (09:12)
[2021-01-14] MEDS ORDERED: Pantoprazole 40 MG in Sodium Chloride 0.9% 20 ML IVPUSH ONE (09:16)
[2021-01-14] MEDS ORDERED: HYDROmorphone 1 MG/ML Syringe IVPUSH ONE ×3 (09:16→11:30)
--- NOTE | 2021-01-14 09:19 | EDM.PDOC ---
ED HPI GENERAL MEDICAL PROBLEM - General Chief Complaint: Abdominal Pain Stated Complaint: SEVERE STOMACH PAIN Time Seen by Provider: 01/14/21 08:48 Source of Information: Reports: Patient History Limitations: Reports: No Limitations - History of Present Illness INITIAL COMMENTS - FREE TEXT/NARRATIVE: 40-year-old female presents for abdominal pain, nausea, vomiting, diarrhea. Patient notes that she was in normal state of health until last night when she began developing mid epigastric abdominal pain radiating to bilateral sides and back right greater than left. Is associated with roughly 20 episodes of watery diarrhea and this morning roughly 6 episodes of nonbloody emesis. Patient denies any fevers but does note diaphoresis and chills. Patient denies any urinary symptoms of hematuria or dysuria. Denies any vaginal discharge or pain. Patient notes that she was seen in the emergency department a couple of months ago for similar symptoms and never really had a clear etiology, was treated for gastritis. Patient did have a CT scan at that time which was grossly unremarkable. She has not had an ultrasound of her gallbladder. Patient denies cough, chest pain, shortness of breath, sore throat, loss of taste or smell. Upper abdomen Pain Score (Numeric/FACES): 10 - Related Data Allergies Allergy/AdvReac Type Severity Reaction Status Date / Time adhesive tape Allergy Hives Verified 01/14/21 08:44 doxycycline Allergy Rash Verified 01/14/21 08:44 morphine Allergy Rash Verified 01/14/21 08:44 oxycodone [Oxycodone] Allergy Rash Verified 01/14/21 08:44 Home Meds: Home Meds Levothyroxine Sodium [Synthroid] 1 tab PO DAILY 12/12/19 [History] Sertraline [Zoloft] 50 mg PO DAILY 06/14/20 [History] Ondansetron [Zofran ODT] 4 mg PO Q6H PRN #12 tab.dis 01/14/21 [Rx] Pantoprazole Sodium [Protonix] 40 mg PO DAILY #14 tablet. 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: 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 History: Reports: Fracture Other 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 History: hx of bilateral legs, hand Neurological History: Reports: Concussion, Migraines Psychiatric History: Reports: Anxiety, Depression Endocrine/Metabolic History: Reports: Hypothyroidism, Obesity/BMI 30+ Other Endocrine/Metabolic History: hx of Hashimotos disease Hematologic History: Reports: Anemia, Iron Deficiency Immunologic History: Reports: None Oncologic (Cancer) History: Reports: None Dermatologic History: Reports: None - Infectious Disease History Infectious Disease History: Reports: Chicken Pox, Novel Coronavirus Other Infectious Disease History: COVID-19 - Past Surgical History Head Surgeries/Procedures: Reports: None HEENT Surgical History: Reports: Oral Surgery, Tonsillectomy Other HEENT Surgeries/Procedures: wisdom teeth Cardiovascular Surgical History: Reports: None Respiratory Surgical History: Reports: None GI Surgical History: Reports: Bariatric Procedure, Other (See Below) Other GI Surgeries/Procedures: removal of gastric lap band Female Surgical History: Reports: Breast Biopsy, Section, D&C, Other (See Below) Other Female Surgeries/Procedures: Laparoscopy Endocrine Surgical History: Reports: None Neurological Surgical History: Reports: None 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 Surgical History: Reports: Other (See Below) Other 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 Surgeries/Procedures:: Closed Reduction Fx Femur Oncologic Surgical History: Reports: None Dermatological Surgical History: Reports: None Social & Family History - Family History Family Medical History: No Pertinent Family History - Tobacco Use Tobacco Use Status *Q: Never Tobacco User Second Hand Smoke Exposure: No - Caffeine Use Caffeine Use: Reports: Coffee - Recreational Drug Use Recreational Drug Use: No ED ROS GENERAL - Review of Systems Review Of Systems: Comprehensive ROS is negative, except as noted in HPI. ED EXAM, GENERAL - Physical Exam Exam: See Below Exam Limited By: No Limitations General Appearance: Alert, WD/WN, No Apparent Distress Ears: Hearing Grossly Normal Throat/Mouth: Normal Voice, No Airway Compromise Head: Atraumatic, Normocephalic Neck: Normal Inspection Respiratory/Chest: No Respiratory Distress, Lungs Clear, Normal Breath Sounds, No Accessory Muscle Use Cardiovascular: Normal Peripheral Pulses, Regular Rate, Rhythm, No Edema GI/Abdominal: Soft, Other (diffuse TTP worse in midepigastrium and RUQ abdomen without guarding, obese) Extremities: Other (no CVA TTP b/l ) Neurological: Alert, Normal Cognition Psychiatric: Normal Affect, Normal Mood Skin Exam: Warm, Dry, Intact, Normal Color Course - Vital Signs Last Recorded V/S: Last Vital Signs Temp 96.2 F L 01/14/21 08:43 Pulse 94 01/14/21 08:43 Resp 20 01/14/21 08:43 BP 162/90 H 01/14/21 08:43 Pulse Ox 96 01/14/21 08:43 - Orders/Labs/Meds Orders: Active Orders 24 hr Category Date Time Status CULTURE BLOOD [BC] Stat Lab 01/14/21 09:00 Received CULTURE BLOOD [BC] Stat Lab 01/14/21 09:55 Results HCG QUALITATIVE,URINE [URCHEM] Stat Lab 01/14/21 09:14 Ordered REFLEX LACTIC ACID YES OR NO [CHEM] Routine Lab 01/14/21 09:57 Received UA W/TERRANCE RFLX IF INDICATED [URIN] Stat Lab 01/14/21 09:14 Ordered Sodium Chloride 0.9% [Saline Flush] Med 01/14/21 09:12 Active 10 ml FLUSH ASDIRECTED PRN Sodium Chloride 0.9% [Saline Flush] Med 01/14/21 09:12 Active 2.5 ml FLUSH ASDIRECTED PRN Blood Culture x2 Reflex Set [OM.PC] Stat Oth 01/14/21 09:14 Ordered Saline Lock Insert [OM.PC] Stat Oth 01/14/21 09:14 Ordered Medication Orders Sodium Chloride (Sodium Chloride 0.9% 10 Ml Syringe) 10 ml FLUSH ASDIRECTED PRN PRN Reason: Keep Vein Open Last Admin: 01/14/21 09:44 Dose: 10 ml Documented by: GABRIELLA Sodium Chloride (Sodium Chloride 0.9% 2.5 Ml Syringe) 2.5 ml FLUSH ASDIRECTED PRN PRN Reason: Keep Vein Open Last Admin: 01/14/21 09:45 Dose: 2.5 ml Documented by: GABRIELLA Labs: Laboratory Tests 01/14/21 01/14/21 01/14/21 Range/Units 09:00 09:00 09:00 WBC 13.34 H (4.0-11.0) K/uL RBC 5.14 (4.30-5.90) M/uL Hgb 14.0 (12.0-16.0) g/dL Hct 43.0 (36.0-46.0) % MCV 83.7 (80.0-98.0) fL MCH 27.2 (27.0-32.0) pg MCHC 32.6 (31.0-37.0) g/dL RDW Std Deviation 45.1 (28.0-62.0) fl RDW Coeff of [place] 15 (11.0-15.0) % Plt Count 401 H (150-400) K/uL MPV 9.40 (7.40-12.00) fL Neut % (Auto) 83.3 H (48.0-80.0) % Lymph % (Auto) 11.2 L (16.0-40.0) % Hancock % (Auto) 4.4 (0.0-15.0) % Eos % (Auto) 1.0 (0.0-7.0) % Baso % (Auto) 0.1 (0.0-1.5) % Neut # (Auto) 11.1 H (1.4-5.7) K/uL Lymph # (Auto) 1.5 (0.6-2.4) K/uL Hancock # (Auto) 0.6 (0.0-0.8) K/uL Eos # (Auto) 0.1 (0.0-0.7) K/uL Baso # (Auto) 0.0 (0.0-0.1) K/uL Nucleated RBC % 0.0 /100WBC Nucleated RBCs # 0 K/uL Sodium 137 (136-145) mmol/L Potassium 4.5 (3.5-5.1) mmol/L Chloride 103 (98-107) mmol/L Carbon Dioxide 23.2 (21.0-32.0) mmol/L BUN 16 (7.0-18.0) mg/dL Creatinine 1.0 (0.6-1.0) mg/dL Est Cr Clr Drug Dosing 71.41 mL/min Estimated GFR (MDRD) > 60.0 ml/min Glucose 147 H (74-106) mg/dL Lactic Acid 2.5 H* (0.4-2.0) mmol/L Calcium 9.1 (8.5-10.1) mg/dL Magnesium 2.0 (1.8-2.4) mg/dL Total Bilirubin 0.3 (0.2-1.0) mg/dL AST 19 (15-37) IU/L ALT 26 (14-63) IU/L Alkaline Phosphatase 104 (46-116) U/L Total Protein 7.6 (6.4-8.2) g/dL Albumin 3.5 (3.4-5.0) g/dL Globulin 4.1 H (2.6-4.0) g/dL Albumin/Globulin Ratio 0.9 (0.9-1.6) Lipase 90 (73-393) U/L SARS-CoV-2 RNA (MELINA) (NEGATIVE) 01/14/21 Range/Units 09:55 WBC (4.0-11.0) K/uL RBC (4.30-5.90) M/uL Hgb (12.0-16.0) g/dL Hct (36.0-46.0) % MCV (80.0-98.0) fL MCH (27.0-32.0) pg MCHC (31.0-37.0) g/dL RDW Std Deviation (28.0-62.0) fl RDW Coeff of [place] (11.0-15.0) % Plt Count (150-400) K/uL MPV (7.40-12.00) fL Neut % (Auto) (48.0-80.0) % Lymph % (Auto) (16.0-40.0) % Hancock % (Auto) (0.0-15.0) % Eos % (Auto) (0.0-7.0) % Baso % (Auto) (0.0-1.5) % Neut # (Auto) (1.4-5.7) K/uL Lymph # (Auto) (0.6-2.4) K/uL Hancock # (Auto) (0.0-0.8) K/uL Eos # (Auto) (0.0-0.7) K/uL Baso # (Auto) (0.0-0.1) K/uL Nucleated RBC % /100WBC Nucleated RBCs # K/uL Sodium (136-145) mmol/L Potassium (3.5-5.1) mmol/L Chloride (98-107) mmol/L Carbon Dioxide (21.0-32.0) mmol/L BUN (7.0-18.0) mg/dL Creatinine (0.6-1.0) mg/dL Est Cr Clr Drug Dosing mL/min Estimated GFR (MDRD) ml/min Glucose (74-106) mg/dL Lactic Acid (0.4-2.0) mmol/L Calcium (8.5-10.1) mg/dL Magnesium (1.8-2.4) mg/dL Total Bilirubin (0.2-1.0) mg/dL AST (15-37) IU/L ALT (14-63) IU/L Alkaline Phosphatase (46-116) U/L Total Protein (6.4-8.2) g/dL Albumin (3.4-5.0) g/dL Globulin (2.6-4.0) g/dL Albumin/Globulin Ratio (0.9-1.6) Lipase (73-393) U/L SARS-CoV-2 RNA (MELINA) NEGATIVE (NEGATIVE) Meds: Medications Generic Name Dose Route Start Last Admin Trade Name Georgi PRN Reason Stop Dose Admin Sodium Chloride 10 ml 01/14/21 09:12 01/14/21 09:44 Sodium Chloride 0.9% 10 Ml Syringe FLUSH 10 ml ASDIRECTED PRN Administration Keep Vein Open Sodium Chloride 2.5 ml 01/14/21 09:12 01/14/21 09:45 Sodium Chloride 0.9% 2.5 Ml Syringe FLUSH 2.5 ml ASDIRECTED PRN Administration Keep Vein Open Discontinued Medications Generic Name Dose Route Start Last Admin Trade Name Georgi PRN Reason Stop Dose Admin Hydromorphone HCl 1 mg 01/14/21 09:16 01/14/21 09:44 Hydromorphone 1 Mg/Ml Syringe IVPUSH 01/14/21 09:17 1 mg ONETIME ONE Administration Hydromorphone HCl 1.5 mg 01/14/21 11:04 01/14/21 11:30 Hydromorphone 1 Mg/Ml Syringe IVPUSH 01/14/21 11:05 Not Given ONETIME ONE Hydromorphone HCl 1 mg 01/14/21 11:29 01/14/21 11:30 Hydromorphone 2 Mg/Ml Syringe IVPUSH 01/14/21 11:30 Not Given STAT STA Hydromorphone HCl 1 mg 01/14/21 11:30 01/14/21 11:35 Hydromorphone 1 Mg/Ml Syringe IVPUSH 01/14/21 11:31 1 mg ONETIME ONE Administration Sodium Chloride 1,000 mls @ 999 mls/hr 01/14/21 09:12 01/14/21 09:44 Normal Saline IV 01/14/21 10:12 999 mls/hr .Bolus ONE Administration Pantoprazole Sodium 40 mg/ 20 mls @ 420 mls/hr 01/14/21 09:16 01/14/21 09:45 Sodium Chloride IVPUSH 01/14/21 09:18 420 mls/hr ONETIME ONE Administration Sodium Chloride 1,000 mls @ 999 mls/hr 01/14/21 10:09 01/14/21 11:00 Normal Saline IV 01/14/21 11:09 999 mls/hr .Bolus ONE Administration Ondansetron HCl 4 mg 01/14/21 09:12 01/14/21 09:44 Ondansetron 4 Mg/2 Ml Sdv IVPUSH 01/14/21 09:13 4 mg ONETIME ONE Administration - Re-Assessments/Exams Free Text/Narrative Re-Assessment/Exam: 01/14/21 09:19 We will get labs, right upper quadrant ultrasound. Will treat symptomatically with IV fluid bolus, tonics, Zofran, Dilaudid. 01/14/21 12:10 Labs grossly unremarkable aside from elevated lactate in setting of numerous episodes of nausea vomiting diarrhea. Patient's abdominal ultrasound is negative. Offered patient CT imaging which she declines. Patient symptoms and risks consistent with gastroenteritis. Seeing as this is happened twice in the last couple of months patient would like to follow-up with a GI specialist. Return precautions were discussed at length. Will discharge with symptomatic relief medications. Departure - Departure Time of Disposition: 12:11 Disposition: Home, Self-Care 01 Condition: Good Clinical Impression: Gastroenteritis - Discharge Information Prescriptions: Pantoprazole Sodium [Protonix] 40 mg PO DAILY #14 tablet. 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 Information is provided below. If you are experiencing vomiting such that you cannot keep anything down or if you develop pain that is not well controlled at home then please return to the emergency department. [facility] [place], [place] [phone] The following information is given to patients seen in the emergency department who are being discharged to home. This information is to outline your options for follow-up care. We provide all patients seen in our emergency department with a follow-up referral. The need for follow-up, as well as the timing and circumstances, are variable depending upon the specifics of your emergency department visit. If you don't have a primary care physician on staff, we will provide you with a referral. We always advise you to contact your personal physician following an emergency department visit to inform them of the circumstance of the visit and for follow-up with them and/or the need for any referrals to a consulting specialist. The emergency department will also refer you to a specialist when appropriate. This referral assures that you have the opportunity for follow-up care with a specialist. All of these measure are taken in an effort to provide you with optimal care, which includes your follow-up. Under all circumstances we always encourage you to contact your private physician who remains a resource for coordinating your care. When calling for follow-up care, please make the office aware that this follow-up is from your recent emergency room visit. If for any reason you are refused follow-up, please contact the [facility] Emergency Department at and asked to speak to the emergency department charge nurse. Please follow up with your primary care physician. If you do not have a primary care physician, see below: [facility] [address] [place] [address] [phone] [facility] [address] [place] [phone] [facility] [address] [place] [id number] Sepsis Event Note (ED) - Evaluation Sepsis Screening Result: Possible Sepsis Risk - Focused Exam Vital Signs: Vital Signs Temp Pulse Resp BP Pulse Ox 01/14/21 08:43 96.2 F L 94 20 162/90 H 96 - My Orders Last 24 Hours: My Active Orders 01/14/21 09:00 CULTURE BLOOD [BC] Stat 01/14/21 09:12 Sodium Chloride 0.9% [Saline Flush] 10 ml FLUSH ASDIRECTED PRN Sodium Chloride 0.9% [Saline Flush] 2.5 ml FLUSH ASDIRECTED PRN 01/14/21 09:14 HCG QUALITATIVE,URINE [URCHEM] Stat UA W/TERRANCE RFLX IF INDICATED [URIN] Stat Blood Culture x2 Reflex Set [OM.PC] Stat Saline Lock Insert [OM.PC] Stat 01/14/21 09:55 CULTURE BLOOD [BC] Stat 01/14/21 09:57 REFLEX LACTIC ACID YES OR NO [CHEM] Routine - Assessment/Plan Last 24 Hours: My Active Orders 01/14/21 09:00 CULTURE BLOOD [BC] Stat 01/14/21 09:12 Sodium Chloride 0.9% [Saline Flush] 10 ml FLUSH ASDIRECTED PRN Sodium Chloride 0.9% [Saline Flush] 2.5 ml FLUSH ASDIRECTED PRN 01/14/21 09:14 HCG QUALITATIVE,URINE [URCHEM] Stat UA W/TERRANCE RFLX IF INDICATED [URIN] Stat Blood Culture x2 Reflex Set [OM.PC] Stat Saline Lock Insert [OM.PC] Stat 01/14/21 09:55 CULTURE BLOOD [BC] Stat 01/14/21 09:57 REFLEX LACTIC ACID YES OR NO [CHEM] Routine
[2021-01-14 09:44] LABS: BLOOD UREA NITROGEN,BUN 16 mg/dL (7.0-18.0); CARBON DIOXIDE,CO2 23.2 mmol/L (21.0-32.0); CHLORIDE,CL 103 mmol/L (98-107); GLUCOSE RANDOM 147 mg/dL (74-106); LIPASE 90 U/L (73-393); POTASSIUM,K 4.5 mmol/L (3.5-5.1); SODIUM,NA 137 mmol/L (136-145)
[2021-01-14] MEDS ORDERED: HYDROmorphone 2 MG/ML Syringe IVPUSH STA (11:29)
--- NOTE | 2021-01-14 11:41 | US ---
INDICATION: Midline abdominal pain. TECHNIQUE: Ultrasound abdomen limited. Sonographic images of the right upper quadrant were obtained using collins-scale and color Doppler images. COMPARISON: CT abdomen pelvis November 17, 2020. FINDINGS: Liver: Normal in size and echotexture. No masses. No intrahepatic biliary dilatation. Gallbladder: No stones or sludge. Normal wall thickness. No pericholecystic fluid. Common bile duct: 1 mm. Pancreas: Normal. Right kidney: Normal in size. Normal echotexture and cortex. No suspicious masses, stones, or hydronephrosis. IMPRESSION: Unremarkable right upper quadrant ultrasound. Dictated by Vasiliy Huitron MD @ 01/14/2021 11:39:[address] Vasiliy Huitron @ Jan 14 2021 11:39AM
[2021-01-14 12:45] VITALS: BP 136/74; PULSE 71
== END 2021-01-14 12:19 | disposition home or self-care (01) ==
LOC: MW.ED 08:28
DX: K52.9 Noninfective gastroenteritis and colitis, unspecified (principal); I10 Essential (primary) hypertension; E03.9 Hypothyroidism, unspecified; E66.9 Obesity, unspecified; Z68.43 Body mass index [BMI] 50.0-59.9, adult; Z88.5 Allergy status to narcotic agent; Z91.048 Other nonmedicinal substance allergy status; Z88.1 Allergy status to other antibiotic agents; Z79.899 Other long term (current) drug therapy; Z20.822 Contact with and (suspected) exposure to COVID-19
CPT/HCPCS: 76705; 80053; 83605; 83690; 83735; 85025; 87040; 87635; 96374; 96375; 96376; 99284; C9113; J1170; J2405; J7030; U0002

== ENCOUNTER 2025-03-13 09:00 | Emergency (ER) | payer OTHER, BC ==
[2025-03-13] MEDS ORDERED: Ketorolac 30 MG/ML SDV IVPUSH ONE (10:10)
[2025-03-13 10:13] LABS: BASOPHILS ABSOLUTE AUTO 0.07 K/uL (0.00-0.20); BASOPHILS PERCENT AUTO 0.6 % (0.0-1.0); EOSINOPHILS ABSOLUTE AUTO 0.14 K/uL (0.00-0.45); EOSINOPHILS PERCENT AUTO 1.2 % (0.0-6.0); IMMATURE GRAN ABSOLUTE AUTO 0.03 K/uL (0.00-0.05); IMMATURE GRAN PERCENT AUTO 0.3 % (0.0-0.4); LYMPHOCYTES ABSOLUTE AUTO 1.93 K/uL (1.00-4.80); LYMPHOCYTES PERCENT AUTO 16.9 % (24.0-44.0); MEAN PLATELET VOLUME 9.2 fL (9.4-12.3); MONOCYTES ABSOLUTE AUTO 0.37 K/uL (0.00-0.80); MONOCYTES PERCENT AUTO 3.2 % (0.0-8.0); NEUTROPHILS ABSOLUTE AUTO 8.91 K/uL (1.80-7.70); NEUTROPHILS PERCENT AUTO 77.8 % (41.0-71.0); NRBC ABSOLUTE 0.00 K/uL (0.00-0.02); NRBC PERCENT 0.0 /100WBC (0.0-0.2); PLATELET COUNT,PLT 329 K/uL (150-400); RED BLOOD CELL COUNT 5.35 M/uL (4.10-5.30); WHITE BLOOD CELL COUNT,WBC 11.45 K/uL (3.9-11.3)
[2025-03-13] MEDS: Ondansetron 4 MG/2 ML SDV IVPUSH ONE (10:22)
[2025-03-13 10:24] LABS: A/G RATIO 0.9 (0.9-1.6); ALANINE AMINOTRANSFERASE,ALT 30.0 IU/L (14-63); ASPARTATE AMNIOTRANSFERASE,AST 17.0 IU/L (15-37); BILIRUBIN TOTAL 0.4 mg/dL (0.2-1.0); BLOOD UREA NITROGEN,BUN 17.0 mg/dL (7.0-18.0); CARBON DIOXIDE,CO2 27.9 mmol/L (21.0-32.0); CHLORIDE,CL 102.0 mmol/L (98-107); CREATININE 1.0 mg/dL (0.6-1.0); EST CRCL DRUG DOSING (CG) 68.61 mL/min; ESTIMATED GFR 72.0 mL/min (>60); GLUCOSE RANDOM 107.0 mg/dL (74-106); POTASSIUM,K 4.0 mmol/L (3.5-5.1); PROTEIN TOTAL,TP 7.7 g/dL (6.4-8.2); SODIUM,NA 141.0 mmol/L (136-145)
[2025-03-13 10:29] VITALS: BP 145/94
[2025-03-13 10:44] LABS: APPEARANCE,URINE CLEAR; GLUCOSE,URINE NEGATIVE (NEGATIVE); OCCULT BLOOD,URINE NEGATIVE (NEGATIVE)
[2025-03-13] MEDS: Iopamidol 755 MG/ML 500 ML Multipack Bottle IVPUSH STA (11:15)
[2025-03-13 12:37] VITALS: PULSE 83
== END 2025-03-13 12:37 | disposition home or self-care (01) ==
LOC: MW.ED 09:00
DX: N83.201 Unspecified ovarian cyst, right side (principal); I10 Essential (primary) hypertension; E66.9 Obesity, unspecified; E03.9 Hypothyroidism, unspecified; Z75.3 Unavailability and inaccessibility of health-care facilities; Z68.41 Body mass index [BMI] 40.0-44.9, adult; Z88.5 Allergy status to narcotic agent; Z91.048 Other nonmedicinal substance allergy status; Z79.890 Hormone replacement therapy; Z79.899 Other long term (current) drug therapy; Z90.710 Acquired absence of both cervix and uterus
CPT/HCPCS: 36415; 74178; 76830; 80053; 81003; 81025; 83690; 85025; 96361; 96374; 96375; 99284; J1171; J2405; J7030; Q9967

== ENCOUNTER 2025-04-06 22:28 | Emergency (ER) | payer OTHER, BC ==
[2025-04-06 23:00] LABS: BASOPHILS ABSOLUTE AUTO 0.08 K/uL (0.00-0.20); BASOPHILS PERCENT AUTO 0.6 % (0.0-1.0); EOSINOPHILS ABSOLUTE AUTO 0.19 K/uL (0.00-0.45); EOSINOPHILS PERCENT AUTO 1.3 % (0.0-6.0); IMMATURE GRAN ABSOLUTE AUTO 0.05 K/uL (0.00-0.05); IMMATURE GRAN PERCENT AUTO 0.4 % (0.0-0.4); LYMPHOCYTES ABSOLUTE AUTO 3.00 K/uL (1.00-4.80); LYMPHOCYTES PERCENT AUTO 21.2 % (24.0-44.0); MEAN PLATELET VOLUME 9.1 fL (9.4-12.3); MONOCYTES ABSOLUTE AUTO 0.79 K/uL (0.00-0.80); MONOCYTES PERCENT AUTO 5.6 % (0.0-8.0); NEUTROPHILS ABSOLUTE AUTO 10.02 K/uL (1.80-7.70); NEUTROPHILS PERCENT AUTO 70.9 % (41.0-71.0); NRBC ABSOLUTE 0.00 K/uL (0.00-0.02); NRBC PERCENT 0.0 /100WBC (0.0-0.2); PLATELET COUNT,PLT 344 K/uL (150-400); RED BLOOD CELL COUNT 4.94 M/uL (4.10-5.30); WHITE BLOOD CELL COUNT,WBC 14.13 K/uL (3.9-11.3)
[2025-04-06] MEDS ORDERED: Naloxone 0.4 MG/ML SDV IVPUSH PRN (23:07)
[2025-04-06] MEDS: Ondansetron 4 MG/2 ML SDV IVPUSH ONE (23:12)
[2025-04-06 23:24] LABS: A/G RATIO 0.9 (0.9-1.6); ALANINE AMINOTRANSFERASE,ALT 24.0 IU/L (14-63); ASPARTATE AMNIOTRANSFERASE,AST 14.0 IU/L (15-37); BILIRUBIN TOTAL 0.3 mg/dL (0.2-1.0); BLOOD UREA NITROGEN,BUN 16.0 mg/dL (7.0-18.0); CARBON DIOXIDE,CO2 30.7 mmol/L (21.0-32.0); CHLORIDE,CL 101.0 mmol/L (98-107); CREATININE 0.9 mg/dL (0.6-1.0); EST CRCL DRUG DOSING (CG) 76.23 mL/min; GLUCOSE RANDOM 73.0 mg/dL (74-106); POTASSIUM,K 4.1 mmol/L (3.5-5.1); PROTEIN TOTAL,TP 7.5 g/dL (6.4-8.2); SODIUM,NA 139.0 mmol/L (136-145)
[2025-04-06 23:29] LABS: ESTIMATED GFR 82.0 mL/min (>60)
[2025-04-06] MEDS: Iopamidol 755 MG/ML 500 ML Multipack Bottle IVPUSH ONE (23:38)
[2025-04-07] LABS: APPEARANCE,URINE CLEAR; GLUCOSE,URINE NEGATIVE (NEGATIVE); OCCULT BLOOD,URINE NEGATIVE (NEGATIVE)
[2025-04-07 00:08] LABS: EPITHELIAL CELLS,URINE OCCASIONAL (NONE-FEW)
[2025-04-07 03:40] VITALS: BP 103/60; PULSE 82
== END 2025-04-07 03:38 | disposition home or self-care (01) ==
LOC: MW.ED 22:28
DX: N83.201 Unspecified ovarian cyst, right side (principal); I10 Essential (primary) hypertension; E03.9 Hypothyroidism, unspecified; Z91.048 Other nonmedicinal substance allergy status; Z88.5 Allergy status to narcotic agent; Z88.8 Allergy status to other drugs, medicaments and biological substances; Z79.890 Hormone replacement therapy; Z79.899 Other long term (current) drug therapy
CPT/HCPCS: 36415; 74177; 76830; 76856; 80053; 81001; 85025; 96361; 96374; 96375; 96376; 99284; J2405; J7030; Q9967; J1171

== ENCOUNTER 2025-05-25 13:27 | Emergency (ER) | payer BC, OTHER ==
[2025-05-25 14:00] LABS: APPEARANCE,URINE CLEAR; GLUCOSE,URINE NEGATIVE (NEGATIVE); OCCULT BLOOD,URINE TRACE-INTACT (NEGATIVE)
[2025-05-25 14:19] LABS: EPITHELIAL CELLS,URINE FEW (NONE-FEW)
[2025-05-25] MEDS ORDERED: Sodium Chloride 0.9% 10 ML Syringe FLUSH PRN (14:52)
[2025-05-25] MEDS ORDERED: Sodium Chloride 0.9% 2.5 ML Syringe FLUSH PRN (14:52)
[2025-05-25 15:01] LABS: BASOPHILS ABSOLUTE AUTO 0.07 K/uL (0.00-0.20); BASOPHILS PERCENT AUTO 0.7 % (0.0-1.0); EOSINOPHILS ABSOLUTE AUTO 0.12 K/uL (0.00-0.45); EOSINOPHILS PERCENT AUTO 1.1 % (0.0-6.0); IMMATURE GRAN ABSOLUTE AUTO 0.03 K/uL (0.00-0.05); IMMATURE GRAN PERCENT AUTO 0.3 % (0.0-0.4); LYMPHOCYTES ABSOLUTE AUTO 2.37 K/uL (1.00-4.80); LYMPHOCYTES PERCENT AUTO 22.7 % (24.0-44.0); MEAN PLATELET VOLUME 9.1 fL (9.4-12.3); MONOCYTES ABSOLUTE AUTO 0.49 K/uL (0.00-0.80); MONOCYTES PERCENT AUTO 4.7 % (0.0-8.0); NEUTROPHILS ABSOLUTE AUTO 7.36 K/uL (1.80-7.70); NEUTROPHILS PERCENT AUTO 70.5 % (41.0-71.0); NRBC ABSOLUTE 0.00 K/uL (0.00-0.02); NRBC PERCENT 0.0 /100WBC (0.0-0.2); PLATELET COUNT,PLT 281 K/uL (150-400); RED BLOOD CELL COUNT 4.68 M/uL (4.10-5.30); WHITE BLOOD CELL COUNT,WBC 10.44 K/uL (3.9-11.3)
[2025-05-25 15:34] LABS: A/G RATIO 1.1 (0.9-1.6); ALANINE AMINOTRANSFERASE,ALT 22 IU/L (14-63); ASPARTATE AMNIOTRANSFERASE,AST 22 IU/L (15-37); BILIRUBIN TOTAL 0.6 mg/dL (0.2-1.0); BLOOD UREA NITROGEN,BUN 14 mg/dL (7.0-18.0); CARBON DIOXIDE,CO2 27.7 mmol/L (21.0-32.0); CHLORIDE,CL 103 mmol/L (98-107); CREATININE 0.8 mg/dL (0.6-1.0); EST CRCL DRUG DOSING (CG) 85.76 mL/min; GLUCOSE RANDOM 72 mg/dL (74-106); POTASSIUM,K 3.6 mmol/L (3.5-5.1); PROTEIN TOTAL,TP 6.9 g/dL (6.4-8.2); SODIUM,NA 140 mmol/L (136-145)
[2025-05-25 15:35] LABS: ESTIMATED GFR 94 mL/min (>60)
[2025-05-25 15:51] LABS: LACTIC ACID 0.9 mmol/L (0.4-2.0)
[2025-05-25] MEDS: Iopamidol 755 MG/ML 500 ML Multipack Bottle IVPUSH STA (16:05)
[2025-05-25] MEDS: Ketorolac 30 MG/ML SDV IVPUSH ONE (16:17)
[2025-05-25 16:21] VITALS: BP 133/87; PULSE 73
[2025-05-25] MEDS ORDERED: Naloxone 0.4 MG/ML SDV IVPUSH PRN (16:31)
== END 2025-05-25 19:49 | disposition left against medical advice (07) ==
LOC: MW.ED 13:27
DX: R10.31 Right lower quadrant pain (principal); R10.21 Pelvic and perineal pain right side; I10 Essential (primary) hypertension; E66.9 Obesity, unspecified; F17.200 Nicotine dependence, unspecified, uncomplicated; Z88.5 Allergy status to narcotic agent; Z88.8 Allergy status to other drugs, medicaments and biological substances; Z79.890 Hormone replacement therapy; Z79.899 Other long term (current) drug therapy; Z90.710 Acquired absence of both cervix and uterus; Z68.41 Body mass index [BMI] 40.0-44.9, adult
CPT/HCPCS: 36415; 74177; 76830; 80053; 81001; 83605; 83690; 83735; 84484; 84703; 85025; 93005; 96374; 96375; 99284; J1885; Q9967; J1171